=== PATIENT | female | born 1965 | race Caucasian/White ===

== ENCOUNTER → 2017-05-01 | Outpatient (CLI) | payer BC ==
[2017-05-01 18:30] LABS: HEMATOCRIT 41.4 % (36.0-47.0); HEMOGLOBIN 13.7 g/dL (12.0-15.5); HGB HCT DIFFERENCE -0.3; MEAN CORPUSCULAR HEMOGLOBIN 31.5 pg (27.0-33.4); MEAN CORPUSCULAR HGB CONC 33.2 g/dL (32.0-36.0); MEAN CORPUSCULAR VOLUME 95 fl (80-97); RED BLOOD COUNT 4.36 10^6/uL (3.72-5.28); RED CELL DISTRIBUTION WIDTH 12.5 % (11.5-14.0); WHITE BLOOD COUNT 12.4 10^3/uL (4.0-10.5)
[2017-05-01 18:56] LABS: ANION GAP 9 (5-19); BLOOD UREA NITROGEN 11 mg/dL (7-20); CALCIUM 8.8 mg/dL (8.4-10.2); CARBON DIOXIDE 22 mmol/L (22-30); CHLORIDE 105 mmol/L (98-107); GLUCOSE 96 mg/dL (75-110); POTASSIUM 4.2 mmol/L (3.6-5.0); SODIUM 136.3 mmol/L (137-145)
== END ==
LOC: OD 16:49
PROVIDERS: ATTEND Physician Assistant Surgical
DX: K57.30 Diverticulosis of large intestine without perforation or abscess without bleeding (principal); R10.32 Left lower quadrant pain
CPT/HCPCS: 36415; 80048; 85027

== ENCOUNTER 2017-05-02 13:17 | Inpatient (IN) | payer BC ==
[2017-05-02] MEDS ORDERED: ERTAPENEM SODIUM INJ 1 GM VIAL IV ONE (13:42)
[2017-05-02] MEDS ORDERED: NORMAL SALINE 1000 ML 1,000 ML IV ONE (13:42)
[2017-05-02] MEDS ORDERED: HYDROMORPHONE HCL INJ/PF 2 MG/ML AMPULE IV ONE ×2 (13:43→16:14)
[2017-05-02 14:40] LABS: ABSOLUTE LYMPHOCYTES (AUTO) 0.9 10^3/uL (0.5-4.7); ABSOLUTE MONOCYTES (AUTO) 0.6 10^3/uL (0.1-1.4); ABSOLUTE NEUT (AUTO) 10.4 10^3/uL (1.7-8.2); BASOPHILS % (AUTO) 0.2 % (0-2); HEMATOCRIT 39.5 % (36.0-47.0); HGB HCT DIFFERENCE -0.5; LYMPHOCYTES % (AUTO) 7.4 % (13-45); MEAN CORPUSCULAR HEMOGLOBIN 31.1 pg (27.0-33.4); MEAN CORPUSCULAR HGB CONC 32.8 g/dL (32.0-36.0); MEAN CORPUSCULAR VOLUME 95 fl (80-97); MONOCYTES % (AUTO) 5.2 % (3-13); RED BLOOD COUNT 4.17 10^6/uL (3.72-5.28); RED CELL DISTRIBUTION WIDTH 12.8 % (11.5-14.0); SEGMENTED NEUTROPHILS % (AUTO) 87.2 % (42-78); WHITE BLOOD COUNT 11.9 10^3/uL (4.0-10.5)
--- NOTE | 2017-05-02 14:46 | ER Document Report ---
ED General - General Chief Complaint: Abdominal Pain Stated Complaint: ABDOMINAL PAIN Time Seen by Provider: 05/02/17 13:41 Mode of Arrival: Ambulatory Information source: Patient Notes: 52 yr old female hx of diverticulitis, with no previous surgeries presents with complaints of abd pain in the LLQ,, pt notes her gi specialist sent her for outpatient ct noting a perforated diverticulitis. pt denies any fevers, admits to nausea and vomiting TRAVEL OUTSIDE OF THE [place] IN LAST 30 DAYS: No - HPI Onset: Yesterday Onset/Duration: Sudden Quality of pain: Sharp Severity: Mild Pain Level: 1 Associated symptoms: Nausea, Vomiting Exacerbated by: Denies Relieved by: Denies Similar symptoms previously: Yes Recently seen / treated by doctor: No - Related Data Allergies/Adverse Reactions: No Known Allergies Allergy (Verified 05/02/17 13:22) Past Medical History - Social History Smoking Status: Never Smoker Cigarette use (# per day): No Chew tobacco use (# tins/day): No Smoking Education Provided: No Family History: Reviewed & Not Pertinent Patient has suicidal ideation: No Patient has homicidal ideation: No - Past Medical History Cardiac Medical History: Reports: Hx Hypertension - on meds in past/varies Denies: Hx Coronary Artery Disease, Hx Heart Attack Pulmonary Medical History: Denies: Hx Asthma, Hx Bronchitis, Hx COPD, Hx Pneumonia Neurological Medical History: Denies: Hx Cerebrovascular Accident, Hx Seizures Renal/ Medical History: Denies: Hx Peritoneal Dialysis Musculoskeltal Medical History: Denies Hx Arthritis - Immunizations Hx Diphtheria, Pertussis, Tetanus Vaccination: No Review of Systems - Review of Systems Notes: REVIEW OF SYSTEMS: CONSTITUTIONAL : Denies fever, chills, or sweats. Denies recent illness. EENT: Denies eye, ear, throat, or mouth pain or symptoms. Denies nasal or sinus congestion or discharge. Denies throat, tongue, or mouth swelling or difficulty swallowing. CARDIOVASCULAR: Denies chest pain. Denies palpitations or racing or irregular heart beat. Denies ankle edema. RESPIRATORY: Denies cough, cold, or chest congestion. Denies shortness of breath, difficulty breathing, or wheezing. GASTROINTESTINAL: Admits to abdominal GENITOURINARY: Denies difficulty urinating, painful urination, burning, frequency, blood in urine, or discharge. MUSCULOSKELETAL: Denies back or neck pain or stiffness. Denies joint pain or swelling. SKIN: Denies rash, lesions or sores. HEMATOLOGIC : Denies easy bruising or bleeding. LYMPHATIC: Denies swollen, enlarged glands. NEUROLOGICAL: Denies confusion or altered mental status. Denies passing out or loss of consciousness. Denies dizziness or lightheadedness. Denies headache. Denies weakness or paralysis or loss of use of either side. Denies problems with gait or speech. Denies sensory loss, numbness, or tingling. Denies seizures. PSYCHIATRIC: Denies anxiety or stress. Denies depression, suicidal ideation, or homicidal ideation. ALL OTHER SYSTEMS REVIEWED AND NEGATIVE. Dictation was performed using [employer] voice recognition software PHYSICAL EXAMINATION: GENERAL: Well-appearing, well-nourished and in no acute distress. HEAD: Atraumatic, normocephalic. EYES: Pupils equal round and reactive to light, extraocular movements intact, sclera anicteric, conjunctiva are normal. ENT: Nares patent, oropharynx clear without exudates. Moist mucous membranes. NECK: Normal range of motion, supple without lymphadenopathy LUNGS: Breath sounds clear to auscultation bilaterally and equal. No wheezes rales or rhonchi. HEART: Regular rate and rhythm without murmurs ABDOMEN: Soft, tender in the left lower quadrant Musculoskeletal: Normal range of motion, no pitting or edema. No cyanosis. NEUROLOGICAL: Cranial nerves grossly intact. Normal speech, normal gait. Normal sensory, motor exams PSYCH: Normal mood, normal affect. SKIN: Warm, Dry, normal turgor, no rashes or lesions noted. Physical Exam - Vital signs Vitals: Temp Pulse Resp BP Pulse Ox 98.3 F 63 18 132/78 H 100 05/02/17 13:24 05/02/17 13:24 05/02/17 13:24 05/02/17 13:24 05/02/17 13:24 Course - Re-evaluation Re-evalutation: 05/02/17 14:[address] Delarosa, he notes since patient is afebrile with low wbc he requests admission to medicine Dr Duran [email or web address] - Vital Signs Vital signs: Temp Pulse Resp BP Pulse Ox 98.3 F 63 18 132/78 H 100 05/02/17 13:24 05/02/17 13:24 05/02/17 13:24 05/02/17 13:24 05/02/17 13:24 - Laboratory Result Diagrams: 05/02/17 14:10 05/02/17 14:10 - Diagnostic Test Radiology reviewed: Image reviewed, Reports reviewed Discharge - Discharge Clinical Impression: Perforated diverticulum of large intestine Abdominal pain Qualifiers: Abdominal location: left lower quadrant Qualified Code(s): R10.32 - Left lower quadrant pain Condition: Stable Disposition: ADMITTED INPATIENT Admitting Provider: [facility] Admitted: Telemetry Instructions: Abdominal Pain ([facility])
[2017-05-02 15:04] LABS: ALANINE AMINOTRANSFERASE 19 U/L (9-52); ALKALINE PHOSPHATASE 48 U/L (38-126); ANION GAP 13 (5-19); ASPARTATE AMINO TRANSFERASE 22 U/L (14-36); BILIRUBIN,DIRECT 0.3 mg/dL (0.0-0.4); BILIRUBIN,TOTAL 2.2 mg/dL (0.2-1.3); BLOOD UREA NITROGEN 11 mg/dL (7-20); CALCIUM 8.6 mg/dL (8.4-10.2); CARBON DIOXIDE 24 mmol/L (22-30); CHLORIDE 103 mmol/L (98-107); CREATININE RESULT 0.84 mg/dL (0.52-1.25); GLUCOSE 100 mg/dL (75-110); LIPASE 103.2 U/L (23-300); POTASSIUM 3.9 mmol/L (3.6-5.0); TOTAL PROTEIN 7.4 g/dL (6.3-8.2)
[2017-05-02 15:32] LABS: APPEARANCE,URINE CLEAR; BILIRUBIN,URINE NEGATIVE (NEGATIVE); GLUCOSE, URINE NEGATIVE (NEGATIVE); KETONES,URINE TRACE mg/dL (NEGATIVE); LEUKOCYTE ESTERASE,URINE NEGATIVE (NEGATIVE); NITRITE,URINE NEGATIVE (NEGATIVE); PROTEIN,URINE NEGATIVE (NEGATIVE); URINE SPECIFIC GRAVITY 1.049
[2017-05-02] MEDS ORDERED: GLUCAGON,HUMAN RECOMB 1 MG INJ SUBCUT PRN (17:49)
[2017-05-02] MEDS ORDERED: DEXTROSE 50%-WATER 25 GM/50 ML DISP.SYRIN IV PRN ×2 (17:49)
[2017-05-02] MEDS ORDERED: DEXTROSE 40% GEL 15 GM TUBE PO PRN ×2 (17:49)
[2017-05-02 18:41] LABS: THYROID STIMULATING HORMONE 0.72 uIU/mL (0.47-4.68)
--- NOTE | 2017-05-02 18:43 | PDOC H&P ---
History of Present Illness Admission Date/PCP: 05/02/17 17:49 LAURA TRAN MD History of Present Illness: CELENA STANTON is a 52 year old female ,she has a history of diverticulitis, she had abdominal pain, and she saw the commercial reporter for evaluation of abdominal pain, outpatient CT scan of the abdomen and pelvis was done, it showed wall thickening, luminal narrowing and surrounding inflammation along the distal sigmoid colon from acute diverticulitis. There is a small amount of inflammation and fluid and extraluminal air between the sigmoid colon and vaginal cuff worrisome for perforation. She was called by the GI physician and advised to go to the emergency room for evaluation and management for possible perforation of the colon. Past Medical History Cardiac Medical History: Reports: Hypertension - on meds in past/varies Social History Smoking Status: Never Smoker Frequency of Alcohol Use: Occasional Hx Recreational Drug Use: No Drugs: None Hx Prescription Drug Abuse: No - Advance Directive Resuscitation Status: Full Code Family History Family History: Reviewed & Not Pertinent Parental Family History Reviewed: Yes Children Family History Reviewed: Yes Sibling(s) Family History Reviewed.: Yes Medication/Allergy Home Medications: Diphenhydramine HCl [Benadryl] 50 mg PO HSP PRN 05/02/17 Furosemide [Lasix] 40 mg PO DAILYP PRN 05/02/17 Nebivolol HCl [Bystolic 5 mg Tablet] 5 mg PO QHS 05/02/17 Omeprazole 40 mg PO Q12 05/02/17 Allergies/Adverse Reactions: No Known Allergies Allergy (Verified 05/02/17 13:22) Review of Systems Constitutional: ABSENT: chills, fever(s), headache(s), weight gain, weight loss Eyes: ABSENT: visual disturbances Ears: ABSENT: hearing changes Cardiovascular: ABSENT: chest pain, dyspnea on exertion, edema, orthropnea, palpitations Respiratory: ABSENT: cough, hemoptysis Gastrointestinal: PRESENT: abdominal pain Genitourinary: ABSENT: dysuria, hematuria Musculoskeletal: ABSENT: joint swelling Integumentary: ABSENT: rash, wounds Neurological: ABSENT: abnormal gait, abnormal speech, confusion, dizziness, focal weakness, syncope Psychiatric: ABSENT: anxiety, depression, homidical ideation, suicidal ideation Endocrine: ABSENT: cold intolerance, heat intolerance, menstrual abnormalities, polydipsia, polyuria Hematologic/Lymphatic: ABSENT: easy bleeding, easy bruising, lymphadenopathy Physical Exam Vital Signs: Temp Pulse Resp BP Pulse Ox 99.2 F 69 16 118/63 94 05/02/17 16:58 05/02/17 16:58 05/02/17 16:58 05/02/17 16:58 05/02/17 16:58 Intake & Output 05/01/17 05/02/17 05/03/17 06:59 06:59 06:59 Intake Total 0 Balance 0 General appearance: PRESENT: no acute distress, well-developed, well-nourished Head exam: PRESENT: atraumatic, normocephalic Eye exam: PRESENT: conjunctiva pink, EOMI, PERRLA Ear exam: PRESENT: normal external ear exam Mouth exam: PRESENT: moist, tongue midline Neck exam: PRESENT: full ROM Respiratory exam: PRESENT: clear to auscultation reji Cardiovascular exam: PRESENT: RRR, +S1, +S2 Pulses: PRESENT: normal dorsalis pedis pul, +2 pedal pulses bilateral Vascular exam: PRESENT: normal capillary refill GI/Abdominal exam: PRESENT: normal bowel sounds, soft, tenderness - There is tenderness in the lower abdomen , there is no guarding, there is no rebound tenderness Rectal exam: PRESENT: deferred Neurological exam: PRESENT: alert, awake, oriented to person, oriented to place , oriented to time, oriented to situation, CN II-XII grossly intact Psychiatric exam: PRESENT: appropriate affect, normal mood Skin exam: PRESENT: dry, intact, warm Assessment & Plan - Diagnosis (1) Diverticulitis of colon with perforation Qualifiers: Diverticulitis bleeding: without bleeding Qualified Code(s): K57.20 - Diverticulitis of large intestine with perforation and abscess without bleeding Is this a current diagnosis for this admission?: YesPlan: She has a history of recurrent diverticulitis, she now presents with acute diverticulitis of the sigmoid colon with perforation. She will be kept n.p.o. consultation will be requested from surgery, she will empirically be treated with IV Cipro and Flagyl
[2017-05-02] MEDS: METRONIDAZOLE 500 MG/NS RTU 100 ML IV SCH (18:44)
[2017-05-02] MEDS: POTASSI CL 10 MEQ/D5-1/2NS 1L 1,000 ML IV PRN (18:44)
[2017-05-02] MEDS: ONDANSETRON HCL INJ/PF 4 MG/2 ML SDV IV PRN (20:08)
[2017-05-02] MEDS: HYDROMORPHONE HCL INJ/PF 2 MG/ML AMPULE IV PRN (20:09)
[2017-05-02 21:28] LABS: APPEARANCE,URINE CLEAR; BILIRUBIN,URINE NEGATIVE (NEGATIVE); GLUCOSE, URINE NEGATIVE (NEGATIVE); KETONES,URINE 20 mg/dL (NEGATIVE); LEUKOCYTE ESTERASE,URINE NEGATIVE (NEGATIVE); NITRITE,URINE NEGATIVE (NEGATIVE); PROTEIN,URINE NEGATIVE (NEGATIVE); URINE SPECIFIC GRAVITY 1.019; UROBILINOGEN,URINE NEGATIVE mg/dL (<2.0)
[2017-05-02] MEDS: CIPROFLOXACIN 400 MG/D5W RTU 200 ML IV SCH (21:58)
--- NOTE | 2017-05-03 00:12 | PDOC CONSULTATION ---
History of Present Illness Admission Date/PCP: 05/02/17 17:49 LAURA TRAN MD Patient complains of: Abdominal pain History of Present Illness: 52-year-old female with 3 prior episodes of sigmoid diverticulitis in the past couple of years now presenting with 2 day history of lower abdominal pain severe in the left lower quadrant and has had some associated nausea but no fever. She denies any bowel habit changes. She had a colonoscopy about 3 years ago that was unremarkable as per the patient Past Medical History Cardiac Medical History: Reports: Hypertension - on meds in past/varies Denies: Coronary Artery Disease, Myocardial Infarction Pulmonary Medical History: Denies: Asthma, Bronchitis, Chronic Obstructive Pulmonary Disease (COPD), Pneumonia Neurological Medical History: Denies: Seizures Musculoskeltal Medical History: Denies: Arthritis Hematology: Denies: Anemia Past Surgical History Past Surgical History: Reports: Hysterectomy - Vaginal for menorrhagia Social History Smoking Status: Never Smoker Frequency of Alcohol Use: Occasional Hx Recreational Drug Use: No Drugs: None Hx Prescription Drug Abuse: No - Advance Directive Resuscitation Status: Full Code Family History Family History: Reviewed & Not Pertinent Parental Family History Reviewed: No Children Family History Reviewed: No Sibling(s) Family History Reviewed.: No Medication/Allergy Home Medications: Diphenhydramine HCl [Benadryl] 50 mg PO HSP PRN 05/02/17 Furosemide [Lasix] 40 mg PO DAILYP PRN 05/02/17 Nebivolol HCl [Bystolic 5 mg Tablet] 5 mg PO QHS 05/02/17 Omeprazole 40 mg PO Q12 05/02/17 Allergies/Adverse Reactions: No Known Allergies Allergy (Verified 05/02/17 13:22) Physical Exam Vital Signs: Temp Pulse Resp BP Pulse Ox 99.3 F 63 18 110/60 97 05/02/17 19:51 05/02/17 19:51 05/02/17 19:51 05/02/17 19:51 05/02/17 19:51 Intake & Output 05/01/17 05/02/17 05/03/17 06:59 06:59 06:59 Intake Total 0 Balance 0 General appearance: PRESENT: no acute distress, cooperative Eye exam: PRESENT: conjunctiva pink Neck exam: PRESENT: other - Supple with no tenderness Respiratory exam: PRESENT: clear to auscultation reji Cardiovascular exam: PRESENT: RRR GI/Abdominal exam: PRESENT: other - Soft, nondistended, left lower quadrant abdominal tenderness with no peritoneal signs Extremities exam: PRESENT: other - No swelling and no tenderness Neurological exam: PRESENT: alert, awake, oriented to situation Psychiatric exam: PRESENT: appropriate affect Skin exam: PRESENT: warm Results Laboratory Results: 05/02/17 21:00 Urine Color YELLOW Urine Appearance CLEAR Urine pH 6.0 Ur Specific [place] 1.019 Urine Protein NEGATIVE Urine Glucose (UA) NEGATIVE Urine Ketones 20 H Urine Blood NEGATIVE Urine Nitrite NEGATIVE Ur Leukocyte Esterase NEGATIVE Urine WBC (Auto) 0 Urine RBC (Auto) 0 Assessment & Plan - Diagnosis (1) Diverticulitis of colon with perforation Qualifiers: Diverticulitis bleeding: without bleeding Qualified Code(s): K57.20 - Diverticulitis of large intestine with perforation and abscess without bleeding Is this a current diagnosis for this admission?: YesPlan: Diverticulitis with a focal tenderness without peritoneal signs. Patient will likely respond with conservative management. However with her multiple prior episodes of diverticulitis, patient would benefit from a semi-elective sigmoid colon resection. Recommend continuation of IV antibiotics and bowel rest until the pain significantly improved. When pain significantly improves may start her on a diet, likely in a couple of days. Patient needs to be on p.o. antibiotics for a good 2 week course. I will see her back for follow-up in my office if she does well with conservative management, to discuss with her semi- elective sigmoid colon resection. Obviously if she does not respond with conservative measures she will need surgery during this admission. Surgicalist service will follow along with you.
[2017-05-03] MEDS: METRONIDAZOLE 500 MG/NS RTU 100 ML IV SCH ×4 (00:43→21:37)
[2017-05-03] MEDS: HYDROMORPHONE HCL INJ/PF 2 MG/ML AMPULE IV PRN ×2 (00:43→04:44)
[2017-05-03 04:58] LABS: ABSOLUTE LYMPHOCYTES (AUTO) 1.6 10^3/uL (0.5-4.7); ABSOLUTE MONOCYTES (AUTO) 0.8 10^3/uL (0.1-1.4); ABSOLUTE NEUT (AUTO) 9.8 10^3/uL (1.7-8.2); BASOPHILS % (AUTO) 0.3 % (0-2); EOSINOPHILS % (AUTO) 0.2 % (0-6); HEMATOCRIT 35.9 % (36.0-47.0); HEMOGLOBIN 11.9 g/dL (12.0-15.5); HGB HCT DIFFERENCE -0.2; LYMPHOCYTES % (AUTO) 13.3 % (13-45); MEAN CORPUSCULAR HEMOGLOBIN 31.6 pg (27.0-33.4); MEAN CORPUSCULAR HGB CONC 33.1 g/dL (32.0-36.0); MEAN CORPUSCULAR VOLUME 96 fl (80-97); MONOCYTES % (AUTO) 6.5 % (3-13); RED BLOOD COUNT 3.75 10^6/uL (3.72-5.28); RED CELL DISTRIBUTION WIDTH 12.7 % (11.5-14.0); SEGMENTED NEUTROPHILS % (AUTO) 79.7 % (42-78); WHITE BLOOD COUNT 12.3 10^3/uL (4.0-10.5)
[2017-05-03 05:22] LABS: ALANINE AMINOTRANSFERASE 25 U/L (9-52); ALBUMIN 3.1 g/dL (3.5-5.0); ALKALINE PHOSPHATASE 37 U/L (38-126); ANION GAP 8 (5-19); ASPARTATE AMINO TRANSFERASE 16 U/L (14-36); BILIRUBIN,DIRECT 0.4 mg/dL (0.0-0.4); BILIRUBIN,TOTAL 1.5 mg/dL (0.2-1.3); BLOOD UREA NITROGEN 7 mg/dL (7-20); CALCIUM 7.9 mg/dL (8.4-10.2); CARBON DIOXIDE 21 mmol/L (22-30); CHLORIDE 109 mmol/L (98-107); CHOLESTEROL 147.19 mg/dL (0-200); CREATININE RESULT 0.78 mg/dL (0.52-1.25); Direct HDL 57 mg/dL (>40); GLUCOSE 115 mg/dL (75-110); POTASSIUM 4.6 mmol/L (3.6-5.0); SODIUM 138.4 mmol/L (137-145); TRIGLYCERIDES 77 mg/dL (<150)
[2017-05-03 05:34] LABS: DIRECT LDL 69 mg/dL (<100)
[2017-05-03] MEDS: ENOXAPARIN SODIUM INJ 40 MG/0.4 ML DISP.SYRIN SUBCUT SCH (09:46)
[2017-05-03] MEDS: KETOROLAC TROMETHAMINE INJ/PF 30 MG/1 ML SDV IV PRN ×2 (09:46→20:26)
[2017-05-03] MEDS: CIPROFLOXACIN 400 MG/D5W RTU 200 ML IV SCH ×2 (09:46→22:54)
[2017-05-03] MEDS: ONDANSETRON HCL INJ/PF 4 MG/2 ML SDV IV PRN (09:53)
--- NOTE | 2017-05-03 15:28 | PROGRESS NOTE E ---
Progress Note NAME: CELENA STANTON : 1965 AGE: 52Y DATE: 05/03/2017 ROOM: 415 SUBJECTIVE: She is still complaining of pain in the left lower quadrant, though a lot less when she came in yesterday. OBJECTIVE: ABDOMEN: Her abdomen is soft with tenderness of the left lower quadrant. PLAN: The plan is to continue her on IV antibiotics for this recurrent diverticulitis and keep her on bowel rest another day. DICTATING PHYSICIAN: WIL SHARMA M.D. [id number] PHY#: [id number] ID: [id number] JOB#: [id number] ACCT: [id number] cc: >
--- NOTE | 2017-05-03 19:21 | PDOC PROGRESS REPORT ---
Subjective Progress Note for:: 05/03/17 Subjective:: She was seen by the bedside, she had IV Toradol for the abdominal pain with very good result. She was seen by the surgeon, the plan for management is conservative at this time Physical Exam Vital Signs: Temp Pulse Resp BP Pulse Ox 98.3 F 56 L 18 110/67 97 05/03/17 16:00 05/03/17 16:00 05/03/17 16:00 05/03/17 16:00 05/03/17 16:00 Intake & Output 05/02/17 05/03/17 05/04/17 06:59 06:59 06:59 Intake Total 900 1500 Output Total 600 Balance 300 1500 Weight 71.2 kg General appearance: PRESENT: no acute distress Eye exam: PRESENT: PERRLA Respiratory exam: PRESENT: clear to auscultation reji Cardiovascular exam: PRESENT: +S1, +S2 GI/Abdominal exam: PRESENT: soft Neurological exam: PRESENT: alert, CN II-XII grossly intact Results Laboratory Results: 05/03/17 04:16 05/03/17 04:16 05/02/17 05/03/17 05/03/17 21:00 04:16 04:16 WBC 12.3 H RBC 3.75 Hgb 11.9 L Hct 35.9 L MCV 96 MCH 31.6 MCHC 33.1 RDW 12.7 Plt Count 174 Seg Neutrophils % 79.7 H Lymphocytes % 13.3 Monocytes % 6.5 Eosinophils % 0.2 Basophils % 0.3 Absolute Neutrophils 9.8 H Absolute Lymphocytes 1.6 Absolute Monocytes 0.8 Absolute Eosinophils 0.0 Absolute Basophils 0.0 Sodium 138.4 Potassium 4.6 Chloride 109 H Carbon Dioxide 21 L Anion Gap 8 BUN 7 Creatinine 0.78 Est GFR ( Amer) > 60 Est GFR (Non-Af Amer) > 60 Glucose 115 H Calcium 7.9 L Total Bilirubin 1.5 H AST 16 ALT 25 Alkaline Phosphatase 37 L Total Protein 6.0 L Albumin 3.1 L Triglycerides 77 Cholesterol 147.19 LDL Cholesterol Direct 69 VLDL Cholesterol 15.0 HDL Cholesterol 57 Urine Color YELLOW Urine Appearance CLEAR Urine pH 6.0 Ur Specific [place] 1.019 Urine Protein NEGATIVE Urine Glucose (UA) NEGATIVE Urine Ketones 20 H Urine Blood NEGATIVE Urine Nitrite NEGATIVE Ur Leukocyte Esterase NEGATIVE Urine WBC (Auto) 0 Urine RBC (Auto) 0 Assessment & Plan - Diagnosis (1) Diverticulitis of colon with perforation Qualifiers: Diverticulitis bleeding: without bleeding Qualified Code(s): K57.20 - Diverticulitis of large intestine with perforation and abscess without bleeding Is this a current diagnosis for this admission?: YesPlan: Patient remained n.p.o., continue IV antibiotic, continue IV toradol
[2017-05-03] MEDS: POTASSI CL 10 MEQ/D5-1/2NS 1L 1,000 ML IV PRN (19:22)
[2017-05-04] MEDS ORDERED: METRONIDAZOLE 500 MG/NS RTU 100 ML IV SCH
[2017-05-04] MEDS: METRONIDAZOLE 500 MG/NS RTU 100 ML IV SCH ×4 (02:52→20:59)
[2017-05-04 05:22] LABS: ABSOLUTE EOSINOPHILS # (AUTO) 0.1 10^3/uL (0.0-0.6); ABSOLUTE LYMPHOCYTES (AUTO) 1.6 10^3/uL (0.5-4.7); ABSOLUTE MONOCYTES (AUTO) 0.7 10^3/uL (0.1-1.4); ABSOLUTE NEUT (AUTO) 5.8 10^3/uL (1.7-8.2); BASOPHILS % (AUTO) 0.5 % (0-2); EOSINOPHILS % (AUTO) 1.4 % (0-6); HEMATOCRIT 34.6 % (36.0-47.0); HEMOGLOBIN 11.7 g/dL (12.0-15.5); HGB HCT DIFFERENCE 0.5; LYMPHOCYTES % (AUTO) 19.8 % (13-45); MEAN CORPUSCULAR HEMOGLOBIN 32.1 pg (27.0-33.4); MEAN CORPUSCULAR HGB CONC 33.8 g/dL (32.0-36.0); MEAN CORPUSCULAR VOLUME 95 fl (80-97); MONOCYTES % (AUTO) 8.3 % (3-13); RED BLOOD COUNT 3.65 10^6/uL (3.72-5.28); RED CELL DISTRIBUTION WIDTH 12.7 % (11.5-14.0); WHITE BLOOD COUNT 8.3 10^3/uL (4.0-10.5)
[2017-05-04] MEDS: POTASSI CL 10 MEQ/D5-1/2NS 1L 1,000 ML IV PRN (08:06)
[2017-05-04] MEDS: ENOXAPARIN SODIUM INJ 40 MG/0.4 ML DISP.SYRIN SUBCUT SCH (09:18)
[2017-05-04] MEDS: CIPROFLOXACIN 400 MG/D5W RTU 200 ML IV SCH ×2 (10:32→21:07)
[2017-05-04] MEDS: KETOROLAC TROMETHAMINE INJ/PF 30 MG/1 ML SDV IV PRN ×2 (10:33→22:55)
--- NOTE | 2017-05-04 11:19 | PROGRESS NOTE E ---
Progress Note NAME: CELENA STANTON : 1965 AGE: 52Y DATE: 05/04/2017 ROOM: 415 The patient is still complaining of left lower quadrant abdominal pains but no nausea or vomiting. She is passing gas and had a bowel movement. Her white count yesterday was normal and she is afebrile today. I agree with Dr. Sol to start her on a clear liquids today. I told her we will hold off on giving her more solid foods unless her symptoms really decrease further. DICTATING PHYSICIAN: WIL SHARMA M.D. [id number] PHY#: [id number] ID: [id number] JOB#: [id number] ACCT: [id number] cc: >
--- NOTE | 2017-05-04 16:26 | PDOC PROGRESS REPORT ---
Subjective Progress Note for:: 05/04/17 Subjective:: She was admitted because of perforated acute diverticulitis, she was seen earlier this morning by the surgeon the plan is to continue conservative approach to the perforated diverticulitis, she complained of abdominal pain, the pin seems to respond to intravenous Toradol. She will continue the IV antibiotic as prescribed earlier Physical Exam Vital Signs: Temp Pulse Resp BP Pulse Ox 98.5 F 50 L 18 120/75 98 05/04/17 12:08 05/04/17 12:08 05/04/17 12:08 05/04/17 12:08 05/04/17 12:08 Intake & Output 05/03/17 05/04/17 05/05/17 06:59 06:59 06:59 Intake Total 900 3450 480 Output Total 600 800 Balance 300 2650 480 Weight 71.2 kg 71.4 kg General appearance: PRESENT: no acute distress, well-developed, well-nourished Head exam: PRESENT: atraumatic, normocephalic Eye exam: PRESENT: conjunctiva pink, EOMI, PERRLA. ABSENT: scleral icterus Ear exam: PRESENT: normal external ear exam Mouth exam: PRESENT: moist, tongue midline Neck exam: PRESENT: full ROM. ABSENT: carotid bruit, JVD, lymphadenopathy, thyromegaly Cardiovascular exam: PRESENT: RRR, +S1, +S2 Pulses: PRESENT: normal dorsalis pedis pul, +2 pedal pulses bilateral Vascular exam: PRESENT: normal capillary refill GI/Abdominal exam: PRESENT: normal bowel sounds, soft, tenderness Rectal exam: PRESENT: deferred Neurological exam: PRESENT: alert, awake, oriented to person, oriented to place , oriented to time, oriented to situation, CN II-XII grossly intact Psychiatric exam: PRESENT: appropriate affect, normal mood Skin exam: PRESENT: dry, intact, warm. ABSENT: cyanosis, rash Results Laboratory Results: 05/04/17 04:18 05/03/17 04:16 05/04/17 04:18 WBC 8.3 RBC 3.65 L Hgb 11.7 L Hct 34.6 L MCV 95 MCH 32.1 MCHC 33.8 RDW 12.7 Plt Count 182 Seg Neutrophils % 70.0 Lymphocytes % 19.8 Monocytes % 8.3 Eosinophils % 1.4 Basophils % 0.5 Absolute Neutrophils 5.8 Absolute Lymphocytes 1.6 Absolute Monocytes 0.7 Absolute Eosinophils 0.1 Absolute Basophils 0.0 05/02/17 21:00 Clean Catch Midstream Urine Culture - Final NO GROWTH 2 DAYS Assessment & Plan - Diagnosis (1) Diverticulitis of colon with perforation Qualifiers: Diverticulitis bleeding: without bleeding Qualified Code(s): K57.20 - Diverticulitis of large intestine with perforation and abscess without bleeding Is this a current diagnosis for this admission?: Yes - Plan Summary Plan Summary: She will continue IV antibiotic, IV Toradol, clear liquid diet.
[2017-05-05] MEDS: POTASSI CL 10 MEQ/D5-1/2NS 1L 1,000 ML IV PRN (00:32)
[2017-05-05] MEDS: METRONIDAZOLE 500 MG/NS RTU 100 ML IV SCH ×3 (02:09→15:20)
[2017-05-05 05:59] LABS: ABSOLUTE EOSINOPHILS # (AUTO) 0.1 10^3/uL (0.0-0.6); ABSOLUTE LYMPHOCYTES (AUTO) 1.7 10^3/uL (0.5-4.7); ABSOLUTE MONOCYTES (AUTO) 0.6 10^3/uL (0.1-1.4); ABSOLUTE NEUT (AUTO) 3.7 10^3/uL (1.7-8.2); BASOPHILS % (AUTO) 0.8 % (0-2); EOSINOPHILS % (AUTO) 1.9 % (0-6); HEMATOCRIT 35.3 % (36.0-47.0); HEMOGLOBIN 11.9 g/dL (12.0-15.5); HGB HCT DIFFERENCE 0.4; LYMPHOCYTES % (AUTO) 27.8 % (13-45); MEAN CORPUSCULAR HGB CONC 33.6 g/dL (32.0-36.0); MEAN CORPUSCULAR VOLUME 95 fl (80-97); MONOCYTES % (AUTO) 9.7 % (3-13); RED BLOOD COUNT 3.71 10^6/uL (3.72-5.28); RED CELL DISTRIBUTION WIDTH 12.6 % (11.5-14.0); SEGMENTED NEUTROPHILS % (AUTO) 59.8 % (42-78); WHITE BLOOD COUNT 6.3 10^3/uL (4.0-10.5)
[2017-05-05] MEDS: CIPROFLOXACIN 400 MG/D5W RTU 200 ML IV SCH (10:18)
[2017-05-05] MEDS: ENOXAPARIN SODIUM INJ 40 MG/0.4 ML DISP.SYRIN SUBCUT SCH (10:28)
--- NOTE | 2017-05-05 12:19 | PDOC DISCHARGE SUMMARY ---
General - Admit/Disc Date/PCP Admission Date/Primary Care Provider: 05/02/17 17:49 LAURA TRAN MD Discharge Date: 05/05/17 - Discharge Diagnosis (1) Diverticulitis of colon with perforation Is this a current diagnosis for this admission?: Yes - Additional Information Resuscitation Status: Full Code Discharge Diet: As Tolerated Home Medications: Furosemide [Lasix] 40 mg PO DAILYP PRN 05/02/17 Nebivolol HCl [Bystolic 5 mg Tablet] 5 mg PO QHS 05/02/17 Omeprazole 40 mg PO Q12 05/02/17 Ciprofloxacin HCl [Cipro 500 mg Tablet] 500 mg PO BID #28 tablet 05/05/17 Metronidazole [Flagyl 500 mg Tablet] 500 mg PO Q8H #42 tablet 05/05/17 History of Present Illness History of Present Illness: CELENA STANTON is a 52 year old female ,she has a history of diverticulitis, she had abdominal pain, and she saw the mail order biller for evaluation of abdominal pain, outpatient CT scan of the abdomen and pelvis was done, it showed wall thickening, luminal narrowing and surrounding inflammation along the distal sigmoid colon from acute diverticulitis. There is a small amount of inflammation and fluid and extraluminal air between the sigmoid colon and vaginal cuff worrisome for perforation. She was called by the GI physician and advised to go to the emergency room for evaluation and management for possible perforation of the colon. Hospital Course Hospital Course: She was admitted for the management of perforated diverticulitis of the sigmoid colon. She was treated conservatively with intravenous antibiotic Cipro and Flagyl, she was kept n.p.o. for 2 days, liquid diet was slowly introduced and subsequently solid diet was introduced. She was seen by the surgeon, conservative approach was recommended at this time. Pain control was achieved with intravenous Toradol, she did not tolerate intravenous Dilaudid. She will be discharged home today, because of the recurrent nature of the diverticulitis elective outpatient colectomy was recommended. Physical Exam Vital Signs: Temp Pulse Resp BP Pulse Ox 98.3 F 51 L 12 115/78 98 05/05/17 08:11 05/05/17 08:11 05/05/17 08:11 05/05/17 08:11 05/05/17 08:11 Intake & Output 05/04/17 05/05/17 05/06/17 06:59 06:59 06:59 Intake Total 3450 2723 481 Output Total 800 1350 Balance 2650 1373 481 Weight 71.4 kg 72.6 kg General appearance: PRESENT: no acute distress, well-developed, well-nourished Head exam: PRESENT: atraumatic, normocephalic Eye exam: PRESENT: conjunctiva pink, EOMI, PERRLA. ABSENT: scleral icterus Ear exam: PRESENT: normal external ear exam Mouth exam: PRESENT: moist, tongue midline Neck exam: PRESENT: full ROM Respiratory exam: PRESENT: clear to auscultation reji Cardiovascular exam: PRESENT: RRR, +S1, +S2 Pulses: PRESENT: normal dorsalis pedis pul, +2 pedal pulses bilateral Vascular exam: PRESENT: normal capillary refill GI/Abdominal exam: PRESENT: normal bowel sounds, soft Rectal exam: PRESENT: deferred Neurological exam: PRESENT: alert, awake, oriented to person, oriented to place , oriented to time, oriented to situation, CN II-XII grossly intact Psychiatric exam: PRESENT: appropriate affect, normal mood Skin exam: PRESENT: dry, intact, warm Results Laboratory Results: 05/05/17 05:06 05/03/17 04:16 05/05/17 05:06 WBC 6.3 RBC 3.71 L Hgb 11.9 L Hct 35.3 L MCV 95 MCH 32.0 MCHC 33.6 RDW 12.6 Plt Count 208 Seg Neutrophils % 59.8 Lymphocytes % 27.8 Monocytes % 9.7 Eosinophils % 1.9 Basophils % 0.8 Absolute Neutrophils 3.7 Absolute Lymphocytes 1.7 Absolute Monocytes 0.6 Absolute Eosinophils 0.1 Absolute Basophils 0.0 05/02/17 21:00 Clean Catch Midstream Urine Culture - Final NO GROWTH 2 DAYS
--- NOTE | 2017-05-05 12:48 | PROGRESS NOTE E ---
Progress Note NAME: CELENA STANTON : 1965 AGE: 52Y DATE: 05/05/2017 ROOM: 415 SUBJECTIVE: This is the third hospital day for the patient for acute sigmoid diverticulitis and treated conservatively. She feels a lot better today with minimal discomfort in the left lower quadrant. There is more discomfort when she has a bowel movement. She did have a small amount of bowel movement this morning. She is afebrile, and her white count is normal at 6.3 with hemoglobin 11.9. She is tolerating liquids well. She is anxious to go home and told her we will try her on a soft diet, and if she tolerates that, then she can go home and continue on p.o. Flagyl and Cipro. I will give her a prescription for Percocet to take 1 every 6 hours as needed for pain. She has not taken any pain medications in the past 12 hours, so it is unlikely she will need a lot of pain meds. From the surgical standpoint, she can go home when she tolerates a soft diet. She should be contained on low residue diet and continue with p.o. antibiotics for about 12 days. She also needs a followup in the surgical clinic of Dr. Delarosa in 2 weeks. OBJECTIVE: ABDOMEN: Soft with minimal tenderness in the left lower quadrant. ASSESSMENT: DICTATING PHYSICIAN: WIL SHARMA M.D. [id number] PHY#: [id number] ID: [id number] JOB#: [id number] ACCT: [id number] cc: >
[2017-05-05 14:40] VITALS: BP 122/95
== END 2017-05-05 15:18 | disposition home or self-care (01) | DRG 392 ==
LOC: ER 13:17 → UNDOADMIN 15:12 → EH 15:12 → 4N 16:47 → EH 17:49 → 4N 17:49
PROVIDERS: ADMIT Internal Medicine; ATTEND Internal Medicine
DX: K57.20 Diverticulitis of large intestine with perforation and abscess without bleeding (principal); I10 Essential (primary) hypertension
CPT/HCPCS: 36415; 80053; 80061; 81001; 81025; 83036; 83605; 83690; 84439; 84443; 85025; 87040; 87086; 96365; 96375; 99284; J0744; J1170; J1335; J1650; J1885; J2405; J3480; J7030

== ENCOUNTER → 2017-05-02 | Outpatient (CLI) | payer BC ==
--- NOTE | 2017-05-02 12:04 | RADIOLOGY REPORT (SQ) ---
EXAM DESCRIPTION: CT ABD/PELVIS WITH IV ORAL COMPLETED DATE/TIME: 05/02/2017 11:40 am REASON FOR STUDY: DIVERTICULITIS OF LARGE INTESTINE K57.32 DVTRCLI OF LG INT W/O PERFORATION OR ABS CESS W/O BLEE COMPARISON: CT abdomen pelvis 09/06/2015 TECHNIQUE: CT scan of the abdomen and pelvis performed using helical scanning technique with dynamic intravenous contrast injection. Patient drank oral contrast. Images reviewed with lung, soft tissue, and bone windows. Reconstructed coronal and sagittal MPR imag es reviewed. Delayed images for evaluation of the urinary system also acquired. All images stored on PACS. All CT scanners at this facility use dose modulation, iterative reconstruction, and/or weight based d osing when appropriate to reduce radiation dose to as low as reasonably achievable (ALARA). [facility]: Dose Right [facility]: CareDose [facility]: Dose Right [facility]: Teradose 4D [facility]: Quri CONTRAST TYPE AND DOSE: contrast/concentration: Isovue 370.00 mg/ml; Total Contrast Delivered: 79.0 ml; Total Saline Delivered: 68.0 ml RENAL FUNCTION: Creatinine 0.8 RADIATION DOSE: Up-to-date CT equipment and radiation dose reduction techniques were employed. CTDIv ol: 7.1 - 8.3 mGy. DLP: 757 mGy-cm.. LIMITATIONS: None. FINDINGS: Column wall thickening, luminal narrowing, and surrounding inflammation is present along t he distal sigmoid colon from acute diverticulitis. There is a small amount of inflammation and fluid , and extraluminal air between the sigmoid colon and vaginal cuff, best shown on coronal images 55 an d 56. This is worrisome for perforation without well-circumscribed abscess. This result was called to Dr. Moreno, 1150 hours 05/02/2017. Remainder of the gastrointestinal tract is opacified with oral contrast. No bowel obstruction. Estefany ping of the colon is otherwise unremarkable aside from scattered descending colon diverticuli. LOWER CHEST: No significant findings. No nodules or infiltrates. Small hiatal hernia. LIVER: Normal size. No masses. No dilated ducts. 12 mm cyst right lobe liver, 14 mm cyst left lobe liver. SPLEEN: Normal size. No focal lesions. PANCREAS: No masses. No significant calcifications. No adjacent inflammation or peripancreatic fluid collections. Pancreatic duct not dilated. GALLBLADDER: No identified stones by CT criteria. No inflammatory changes to suggest cholecystitis. ADRENAL GLANDS: No significant masses or asymmetry. RIGHT KIDNEY AND URETER: No solid masses. No significant calcifications. No hydronephrosis or hyd roureter. LEFT KIDNEY AND URETER: No solid masses. No significant calcifications. No hydronephrosis or hydr oureter. AORTA AND VESSELS: No aneurysm. No dissection. Renal arteries, SMA, celiac without stenosis. RETROPERITONEUM: No retroperitoneal adenopathy, hemorrhage or masses. BOWEL AND PERITONEAL CAVITY: As above APPENDIX: Surgically absent PELVIS: Post hysterectomy. Trace amount of free air and fluid between the sigmoid colon and vaginal cuff related to diverticulitis and diverticular perforation. No well circumscribed abscess. No pelv ic adenopathy. Right ovary not identified. Left ovary 4 x 2.2 cm in size with a 3 x 2 cm cyst ABDOMINAL WALL: No masses. No hernias. BONES: No significant or acute findings. OTHER: No other significant finding. IMPRESSION: Distal sigmoid colon diverticulitis with trace amount of extraluminal air and fluid betw een the inferior aspect of the sigmoid colon and the vaginal cuff. Report called to Dr. Moreno as helio rosen TECHNICAL DOCUMENTATION: JOB ID: [id number] Quality ID # [id number]: Final reports with documentation of one or more dose reduction techniques (e.g., Au tomated exposure control, adjustment of the mA and/or kV according to patient size, use of iterative reconstruction technique) 2010 [employer]- All Rights Reserved
== END ==
LOC: RAD 09:08
PROVIDERS: ATTEND Internal Medicine Gastroenterology
DX: K57.32 Diverticulitis of large intestine without perforation or abscess without bleeding (principal); R10.32 Left lower quadrant pain
CPT/HCPCS: 74177

== ENCOUNTER 2017-05-08 11:35 | Inpatient (IN) | payer BC ==
--- NOTE | 2017-05-08 14:33 | RADIOLOGY REPORT (SQ) ---
EXAM DESCRIPTION: CT ABD/PELVIS WITH IV ORAL COMPLETED DATE/TIME: 05/08/2017 2:09 pm REASON FOR STUDY: DIVERTICULITIS OF LARGE INTESTINE WITH PERFORATION AND ABSCESS WITH BLEEDIN K57.21 DVTRCLI OF LG INT W PERFORATION AND ABSCESS W BLEEDIN COMPARISON: 05/02/2017 TECHNIQUE: CT scan of the abdomen and pelvis performed using helical scanning technique with dynamic intravenous contrast injection and oral contrast. Images reviewed with lung, soft tissue, and bone w indows. Reconstructed coronal and sagittal MPR images reviewed. Delayed images for evaluation of the urinary system also acquired. All images stored on PACS. All CT scanners at this facility use dose modulation, iterative reconstruction, and/or weight based d osing when appropriate to reduce radiation dose to as low as reasonably achievable (ALARA). [facility]: Dose Right [facility]: CareDose [facility]: Dose Right [facility]: Teradose 4D [facility]: [employer] CONTRAST TYPE AND DOSE: contrast/concentration: Isovue 370.00 mg/ml; Total Contrast Delivered: 79.0 ml; Total Saline Delivered: 68.0 ml RENAL FUNCTION: Creatinine 0.78 RADIATION DOSE: Up-to-date CT equipment and radiation dose reduction techniques were employed. CTDIv ol: 7.0 - 8.1 mGy. DLP: 751 mGy-cm.. LIMITATIONS: None. FINDINGS: LOWER CHEST: No significant findings. No nodules or infiltrates. LIVER: Normal size. No masses. No dilated ducts. The previously described small hepatic cysts remai n stable. SPLEEN: Normal size. No focal lesions. PANCREAS: No masses. No significant calcifications. No adjacent inflammation or peripancreatic fluid collections. Pancreatic duct not dilated. GALLBLADDER: No identified stones by CT criteria. No inflammatory changes to suggest cholecystitis. ADRENAL GLANDS: No significant masses or asymmetry. RIGHT KIDNEY AND URETER: No solid masses. No significant calcifications. No hydronephrosis or hyd roureter. LEFT KIDNEY AND URETER: No solid masses. No significant calcifications. No hydronephrosis or hydr oureter. AORTA AND VESSELS: No aneurysm. No dissection. Renal arteries, SMA, celiac without stenosis. RETROPERITONEUM: No retroperitoneal adenopathy, hemorrhage or masses. BOWEL AND PERITONEAL CAVITY: The previously described diffuse wall thickening and luminal narrowing w ith surrounding inflammation involving the distal sigmoid colon is again identified and appears sligh tly more pronounced on the current study. The previously described small amount of inflammation and fluid and extra luminal air between the sigmoid colon and vaginal cuff is not definitely identified o n the current study. APPENDIX: Status post appendectomy. PELVIS: Inflammatory changes related to the diverticulitis are identified. ABDOMINAL WALL: No masses. No hernias. BONES: No significant or acute findings. OTHER: No other significant finding. IMPRESSION: The previously described diffuse wall thickening and luminal narrowing with surrounding inflammation involving the distal sigmoid colon is again identified and appears slightly more pronoun oscar on the current study. The previously described small amount of inflammation and fluid index juliocesar nal air between the sigmoid colon and vaginal cuff is not definitely identified on the current study. No other significant interval changes compared to the previous study. Other findings as noted abov e TECHNICAL DOCUMENTATION: JOB ID: [id number] Quality ID # [id number]: Final reports with documentation of one or more dose reduction techniques (e.g., Au tomated exposure control, adjustment of the mA and/or kV according to patient size, use of iterative reconstruction technique) 2010 [employer]- All Rights Reserved
[2017-05-08] MEDS ORDERED: GLUCAGON,HUMAN RECOMB 1 MG INJ SUBCUT PRN (15:33)
[2017-05-08] MEDS ORDERED: DEXTROSE 40% GEL 15 GM TUBE PO PRN ×2 (15:33)
[2017-05-08] MEDS ORDERED: DEXTROSE 50%-WATER 25 GM/50 ML DISP.SYRIN IV PRN ×2 (15:33)
[2017-05-08 17:03] LABS: LIPASE 138.5 U/L (23-300)
--- NOTE | 2017-05-08 17:15 | PDOC H&P ---
History of Present Illness Admission Date/PCP: 05/08/17 15:03 LAURA TRAN MD History of Present Illness: CELENA STANTON is a 52 year old female, a very pleasant female, she was recently admitted on 05/02/2017 when she was diagnosed with perforated acute diverticulitis of the sigmoid colon, she was discharged on 05/05/2017 on p.o. antibiotic, ciprofloxacin and Flagyl for 2 weeks. She came to the office today for post hospital discharge follow-up , she complained of abdominal pain that was increasing in intensity, in the lower abdomen. She was examined in the office, on palpation of the abdomen it was tender, it was soft there was no guarding there was no signs of peritonitis. A stat CT scan of the abdomen and pelvis with IV contrast was obtained it shows the previously described diffuse wall thickening and luminal narrowing with surrounding inflammation involving the distal sigmoid colon was again identified and is more pronounced on the current study. The previously described small amount of inflammation and fluid and extraluminal air between the sigmoid colon and the vagina cuff was not definitively identified on the current study. Because the CT scan suggests worsening inflammation of the colon and the fact that she has increased abdominal pain she was admitted directly into the hospital for evaluation. I consulted with the surgeon on the phone He suggested that the patient does not need surgery at this time because of the ongoing inflammation but she will need prolonged IV antibiotic for like a month. Because patient inflammation got worse was on Cipro and Flagyl the antibiotic be changed to intravenous ertapenem, a PICC line will be started, she be discharged home in 2 days on IV antibiotic to continue outpatient for 30 days she be kept n.p.o. Past Medical History Cardiac Medical History: Reports: Hypertension - on meds in past/varies Hematology: Denies: Anemia Past Surgical History Past Surgical History: Reports: Hysterectomy - Vaginal for menorrhagia Social History Smoking Status: Never Smoker Frequency of Alcohol Use: Occasional Hx Recreational Drug Use: No Drugs: None Hx Prescription Drug Abuse: No Family History Family History: Reviewed & Not Pertinent Parental Family History Reviewed: Yes Children Family History Reviewed: Yes Sibling(s) Family History Reviewed.: Yes Medication/Allergy Home Medications: Furosemide [Lasix] 40 mg PO DAILYP PRN 05/02/17 Nebivolol HCl [Bystolic 5 mg Tablet] 5 mg PO QHS 05/02/17 Omeprazole 40 mg PO Q12 05/02/17 Ciprofloxacin HCl [Cipro 500 mg Tablet] 500 mg PO BID #28 tablet 05/05/17 Metronidazole [Flagyl 500 mg Tablet] 500 mg PO Q8H #42 tablet 05/05/17 Allergies/Adverse Reactions: No Known Allergies Allergy (Verified 05/02/17 13:22) Review of Systems Constitutional: ABSENT: chills, fever(s), headache(s), weight gain, weight loss Eyes: ABSENT: visual disturbances Ears: ABSENT: hearing changes Cardiovascular: ABSENT: chest pain, dyspnea on exertion, edema, orthropnea, palpitations Respiratory: ABSENT: cough, hemoptysis Gastrointestinal: PRESENT: abdominal pain Genitourinary: ABSENT: dysuria, hematuria Musculoskeletal: ABSENT: joint swelling Integumentary: ABSENT: rash, wounds Neurological: ABSENT: abnormal gait, abnormal speech, confusion, dizziness, focal weakness, syncope Psychiatric: ABSENT: anxiety, depression, homidical ideation, suicidal ideation Endocrine: ABSENT: cold intolerance, heat intolerance, menstrual abnormalities, polydipsia, polyuria Hematologic/Lymphatic: ABSENT: easy bleeding, easy bruising, lymphadenopathy Physical Exam Vital Signs: Intake & Output 05/07/17 05/08/17 05/09/17 06:59 06:59 06:59 Weight 72.6 kg General appearance: PRESENT: no acute distress, well-developed, well-nourished Head exam: PRESENT: atraumatic, normocephalic Eye exam: PRESENT: conjunctiva pink, EOMI, PERRLA Ear exam: PRESENT: normal external ear exam Mouth exam: PRESENT: moist, tongue midline Neck exam: PRESENT: full ROM. ABSENT: carotid bruit, JVD, lymphadenopathy, thyromegaly Respiratory exam: PRESENT: clear to auscultation reji Cardiovascular exam: PRESENT: RRR, +S1, +S2 Pulses: PRESENT: normal dorsalis pedis pul, +2 pedal pulses bilateral Vascular exam: PRESENT: normal capillary refill GI/Abdominal exam: PRESENT: normal bowel sounds, soft, tenderness Rectal exam: PRESENT: deferred Neurological exam: PRESENT: alert, awake, oriented to person, oriented to place , oriented to time, oriented to situation, CN II-XII grossly intact Psychiatric exam: PRESENT: appropriate affect, normal mood Skin exam: PRESENT: dry, intact, warm. ABSENT: cyanosis, rash Results Impressions: Abdomen/Pelvis CT 05/08/17 11:38 IMPRESSION: The previously described diffuse wall thickening and luminal narrowing with surrounding inflammation involving the distal sigmoid colon is again identified and appears slightly more pronounced on the current study. The previously described small amount of inflammation and fluid index luminal air between the sigmoid colon and vaginal cuff is not definitely identified on the current study. No other significant interval changes compared to the previous study. Other findings as noted above Assessment & Plan - Diagnosis (1) Diverticulitis of colon with perforation Qualifiers: Diverticulitis bleeding: without bleeding Qualified Code(s): K57.20 - Diverticulitis of large intestine with perforation and abscess without bleeding Is this a current diagnosis for this admission?: YesPlan: Patient is admitted into the hospital, she will be kept n.p.o., treated with intravenous ertapenem 1 g IV daily, PICC line will be obtained, she will require ertapenem for 30 days, hopefully should be discharged home in 2 days
[2017-05-08] MEDS ORDERED: ENOXAPARIN SODIUM INJ 40 MG/0.4 ML DISP.SYRIN SUBCUT ONE (17:30)
[2017-05-08 17:34] LABS: THYROID STIMULATING HORMONE 3.09 uIU/mL (0.47-4.68)
[2017-05-08 17:36] LABS: APPEARANCE,URINE CLEAR; BILIRUBIN,URINE NEGATIVE (NEGATIVE); GLUCOSE, URINE NEGATIVE (NEGATIVE); KETONES,URINE NEGATIVE (NEGATIVE); LEUKOCYTE ESTERASE,URINE NEGATIVE (NEGATIVE); NITRITE,URINE NEGATIVE (NEGATIVE); PROTEIN,URINE NEGATIVE (NEGATIVE); URINE SPECIFIC GRAVITY 1.027; UROBILINOGEN,URINE NEGATIVE mg/dL (<2.0)
[2017-05-08 17:51] LABS: URINE BARBITURATES SCREEN NEGATIVE; URINE METHADONE SCREEN NEGATIVE; URINE OPIATES LOW NEGATIVE; URINE PHENCYCLIDINE SCREEN NEGATIVE
[2017-05-08] MEDS: POTASSI CL 30 MEQ/D5-1/2NS 1L 30 MEQ/1,000 ML RTUINJ IV PRN (17:53)
[2017-05-08] MEDS ORDERED: ERTAPENEM SODIUM 1 GM in NORMAL SALINE 50 ML IV ONE (18:00)
[2017-05-08] MEDS ORDERED: ONDANSETRON HCL INJ/PF 4 MG/2 ML SDV IV PRN (19:04)
[2017-05-08] MEDS: KETOROLAC TROMETHAMINE INJ/PF 30 MG/1 ML SDV IV PRN (19:32)
[2017-05-08 19:50] LABS: ABSOLUTE BASOPHILS # (AUTO) 0.1 10^3/uL (0.0-0.2); ABSOLUTE EOSINOPHILS # (AUTO) 0.1 10^3/uL (0.0-0.6); ABSOLUTE LYMPHOCYTES (AUTO) 1.2 10^3/uL (0.5-4.7); ABSOLUTE MONOCYTES (AUTO) 0.9 10^3/uL (0.1-1.4); BASOPHILS % (AUTO) 0.8 % (0-2); EOSINOPHILS % (AUTO) 0.6 % (0-6); HEMATOCRIT 38.1 % (36.0-47.0); HEMOGLOBIN 12.7 g/dL (12.0-15.5); LYMPHOCYTES % (AUTO) 13.4 % (13-45); MEAN CORPUSCULAR HEMOGLOBIN 31.5 pg (27.0-33.4); MEAN CORPUSCULAR HGB CONC 33.4 g/dL (32.0-36.0); MEAN CORPUSCULAR VOLUME 94 fl (80-97); MONOCYTES % (AUTO) 9.5 % (3-13); RED BLOOD COUNT 4.04 10^6/uL (3.72-5.28); RED CELL DISTRIBUTION WIDTH 12.5 % (11.5-14.0); SEGMENTED NEUTROPHILS % (AUTO) 75.7 % (42-78); WHITE BLOOD COUNT 9.3 10^3/uL (4.0-10.5)
--- NOTE | 2017-05-08 20:02 | PDOC CONSULTATION ---
Consultation Consult reason:: recurrent sigmoid diverticulitis History of Present Illness Admission Date/PCP: 05/08/17 15:03 LAURA TRAN MD History of Present Illness: CELENA STANTON is a 52 year old female, admitted on 05/02/2017 for perforated but contained acute diverticulitis of the sigmoid colon. The patient was discharged on 05/05/2017 on oral Cipro and Flagyl for 2 weeks. She reports to have been feeling not too well until today when she experienced severe abdominal pain and she went t see her physician who recommended blood work, CT scan A/P with IV and oral contrast. She has been admmitted based on today's CT scan findings significant for diffuse wall thickening and luminal narrowing with surrounding inflammation involving the distal sigmoid colon which is more severe compared to hte previous CT scan. However, the previously described small amount of inflammation, fluid, and extraluminal air between the sigmoid colon and the vagina cuff was not definitively identified on the current study. Currently, she is very nauseated and has vomited once since she has been admitted. Past Medical History Cardiac Medical History: Reports: Hypertension - on meds in past/varies Denies: Coronary Artery Disease, Myocardial Infarction Pulmonary Medical History: Denies: Asthma, Bronchitis, Chronic Obstructive Pulmonary Disease (COPD), Pneumonia Neurological Medical History: Denies: Seizures Musculoskeltal Medical History: Denies: Arthritis Hematology: Denies: Anemia Past Surgical History Past Surgical History: Reports: Appendectomy, Hysterectomy - Vaginal for menorrhagia Social History Smoking Status: Never Smoker Frequency of Alcohol Use: Occasional Hx Recreational Drug Use: No Drugs: None Hx Prescription Drug Abuse: No Family History Family History: Reviewed & Not Pertinent Parental Family History Reviewed: Yes Children Family History Reviewed: Yes Sibling(s) Family History Reviewed.: Yes Medication/Allergy Home Medications: Furosemide [Lasix] 40 mg PO DAILYP PRN 05/02/17 Nebivolol HCl [Bystolic 5 mg Tablet] 5 mg PO QHS 05/02/17 Omeprazole 40 mg PO Q12 05/02/17 Ciprofloxacin HCl [Cipro 500 mg Tablet] 500 mg PO BID #28 tablet 05/05/17 Metronidazole [Flagyl 500 mg Tablet] 500 mg PO Q8H #42 tablet 05/05/17 Allergies/Adverse Reactions: No Known Allergies Allergy (Verified 05/02/17 13:22) Physical Exam Vital Signs: Temp Pulse Resp BP Pulse Ox 98.2 F 50 L 12 130/80 H 96 05/08/17 17:17 05/08/17 17:17 05/08/17 17:17 05/08/17 17:17 05/08/17 17:17 Intake & Output 05/07/17 05/08/17 05/09/17 06:59 06:59 06:59 Weight 72.6 kg General appearance: PRESENT: mild distress Head exam: PRESENT: atraumatic Eye exam: PRESENT: EOMI Respiratory exam: PRESENT: clear to auscultation reji Cardiovascular exam: PRESENT: RRR GI/Abdominal exam: PRESENT: normal bowel sounds, tenderness - in the left lateral quadrant and hypogastrium Rectal exam: PRESENT: deferred Musculoskeletal exam: PRESENT: full ROM Neurological exam: PRESENT: alert, normal gait Results Laboratory Results: 05/08/17 05/08/17 05/08/17 16:29 16:29 16:29 Ammonia 17.5 Amylase 54 Lipase 138.5 TSH 3.09 Free T4 1.27 Urine Color Urine Appearance Urine pH Ur Specific [place] Urine Protein Urine Glucose (UA) Urine Ketones Urine Blood Urine Nitrite Ur Leukocyte Esterase Urine WBC (Auto) Urine RBC (Auto) 05/08/17 16:45 Ammonia Amylase Lipase TSH Free T4 Urine Color YELLOW Urine Appearance CLEAR Urine pH 5.0 Ur Specific [place] 1.027 Urine Protein NEGATIVE Urine Glucose (UA) NEGATIVE Urine Ketones NEGATIVE Urine Blood SMALL H Urine Nitrite NEGATIVE Ur Leukocyte Esterase NEGATIVE Urine WBC (Auto) 1 Urine RBC (Auto) 0 Impressions: Abdomen/Pelvis CT 05/08/17 11:38 IMPRESSION: The previously described diffuse wall thickening and luminal narrowing with surrounding inflammation involving the distal sigmoid colon is again identified and appears slightly more pronounced on the current study. The previously described small amount of inflammation and fluid index luminal air between the sigmoid colon and vaginal cuff is not definitely identified on the current study. No other significant interval changes compared to the previous study. Other findings as noted above Assessment & Plan - Diagnosis (1) Diverticulitis of sigmoid colon Is this a current diagnosis for this admission?: Yes - Plan Summary Plan Summary: Assessment: Abdominal pain, poor appetite and vomititng CT scan A/P significant for persistent sigmoid diverticulitis, without evidence of perforation; the free air identified during the previous admission last week is not identified Blood work pending (CBC, CMP) Plan: NPO IVF IV antibiotics: patient currently on Invanz No surgical intervention contemplated on this patient at this time.
[2017-05-08 20:06] LABS: ALANINE AMINOTRANSFERASE 35 U/L (9-52); ALBUMIN 3.4 g/dL (3.5-5.0); ALKALINE PHOSPHATASE 39 U/L (38-126); ANION GAP 13 (5-19); ASPARTATE AMINO TRANSFERASE 41 U/L (14-36); BILIRUBIN,DIRECT 0.4 mg/dL (0.0-0.4); BILIRUBIN,TOTAL 0.7 mg/dL (0.2-1.3); BLOOD UREA NITROGEN 12 mg/dL (7-20); CALCIUM 8.8 mg/dL (8.4-10.2); CARBON DIOXIDE 21 mmol/L (22-30); CHLORIDE 105 mmol/L (98-107); CREATININE RESULT 1.72 mg/dL (0.52-1.25); GLUCOSE 89 mg/dL (75-110); POTASSIUM 3.8 mmol/L (3.6-5.0); SODIUM 139.4 mmol/L (137-145); TOTAL PROTEIN 6.2 g/dL (6.3-8.2)
[2017-05-08 21:17] LABS: HEMATOCRIT 36.3 % (36.0-47.0); HEMOGLOBIN 12.1 g/dL (12.0-15.5); MEAN CORPUSCULAR HEMOGLOBIN 31.2 pg (27.0-33.4); MEAN CORPUSCULAR HGB CONC 33.3 g/dL (32.0-36.0); MEAN CORPUSCULAR VOLUME 94 fl (80-97); RED BLOOD COUNT 3.87 10^6/uL (3.72-5.28); RED CELL DISTRIBUTION WIDTH 12.7 % (11.5-14.0); WHITE BLOOD COUNT 9.4 10^3/uL (4.0-10.5)
[2017-05-08 21:30] LABS: ALANINE AMINOTRANSFERASE 43 U/L (9-52); ALBUMIN 3.3 g/dL (3.5-5.0); ALKALINE PHOSPHATASE 38 U/L (38-126); ANION GAP 11 (5-19); ASPARTATE AMINO TRANSFERASE 37 U/L (14-36); BILIRUBIN,DIRECT 0.3 mg/dL (0.0-0.4); BILIRUBIN,TOTAL 0.6 mg/dL (0.2-1.3); BLOOD UREA NITROGEN 10 mg/dL (7-20); CALCIUM 8.4 mg/dL (8.4-10.2); CARBON DIOXIDE 22 mmol/L (22-30); CHLORIDE 107 mmol/L (98-107); CREATININE RESULT 1.48 mg/dL (0.52-1.25); GLUCOSE 120 mg/dL (75-110); POTASSIUM 3.6 mmol/L (3.6-5.0); SODIUM 140.1 mmol/L (137-145); TOTAL PROTEIN 6.2 g/dL (6.3-8.2)
[2017-05-09] MEDS: POTASSI CL 30 MEQ/D5-1/2NS 1L 30 MEQ/1,000 ML RTUINJ IV PRN ×2 (03:44→17:27)
[2017-05-09] MEDS: KETOROLAC TROMETHAMINE INJ/PF 30 MG/1 ML SDV IV PRN (03:44)
[2017-05-09 06:29] LABS: ANION GAP 11 (5-19); BLOOD UREA NITROGEN 9 mg/dL (7-20); CALCIUM 8.3 mg/dL (8.4-10.2); CARBON DIOXIDE 23 mmol/L (22-30); CHLORIDE 107 mmol/L (98-107); CHOLESTEROL 120.44 mg/dL (0-200); CREATININE RESULT 1.26 mg/dL (0.52-1.25); DIRECT LDL 41 mg/dL (<100); Direct HDL 45 mg/dL (>40); GLUCOSE 107 mg/dL (75-110); SODIUM 140.8 mmol/L (137-145); TRIGLYCERIDES 98 mg/dL (<150); VLDL CHOLESTEROL 19.6 mg/dL (10-31)
[2017-05-09 06:37] LABS: ABSOLUTE BASOPHILS # (AUTO) 0.1 10^3/uL (0.0-0.2); ABSOLUTE LYMPHOCYTES (AUTO) 1.5 10^3/uL (0.5-4.7); ABSOLUTE MONOCYTES (AUTO) 0.8 10^3/uL (0.1-1.4); ABSOLUTE NEUT (AUTO) 5.7 10^3/uL (1.7-8.2); BASOPHILS % (AUTO) 0.6 % (0-2); EOSINOPHILS % (AUTO) 0.6 % (0-6); HEMATOCRIT 36.4 % (36.0-47.0); HEMOGLOBIN 12.3 g/dL (12.0-15.5); HGB HCT DIFFERENCE 0.5; MEAN CORPUSCULAR HEMOGLOBIN 31.6 pg (27.0-33.4); MEAN CORPUSCULAR HGB CONC 33.8 g/dL (32.0-36.0); MEAN CORPUSCULAR VOLUME 93 fl (80-97); MONOCYTES % (AUTO) 10.2 % (3-13); RED CELL DISTRIBUTION WIDTH 12.7 % (11.5-14.0); SEGMENTED NEUTROPHILS % (AUTO) 69.6 % (42-78); WHITE BLOOD COUNT 8.2 10^3/uL (4.0-10.5)
--- NOTE | 2017-05-09 07:57 | PDOC PROGRESS REPORT ---
Subjective Progress Note for:: 05/09/17 Subjective:: Feels better. Physical Exam Vital Signs: Temp Pulse Resp BP Pulse Ox 97.8 F 47 L 16 117/70 99 05/08/17 23:47 05/08/17 23:47 05/08/17 23:47 05/08/17 23:47 05/08/17 23:47 Intake & Output 05/08/17 05/09/17 05/10/17 06:59 06:59 06:59 Intake Total 10 Output Total 1300 Balance -1290 Weight 71.9 kg General appearance: PRESENT: no acute distress, cooperative Respiratory exam: PRESENT: clear to auscultation reji Cardiovascular exam: PRESENT: RRR GI/Abdominal exam: PRESENT: other - Soft, nondistended, very mild lower abdominal tenderness. Results Laboratory Results: 05/09/17 04:00 05/09/17 04:00 05/08/17 05/08/17 05/08/17 16:29 16:29 16:29 WBC RBC Hgb Hct MCV MCH MCHC RDW Plt Count Seg Neutrophils % Lymphocytes % Monocytes % Eosinophils % Basophils % Absolute Neutrophils Absolute Lymphocytes Absolute Monocytes Absolute Eosinophils Absolute Basophils Sodium Potassium Chloride Carbon Dioxide Anion Gap BUN Creatinine Est GFR ( Amer) Est GFR (Non-Af Amer) Glucose Calcium Total Bilirubin AST ALT Alkaline Phosphatase Ammonia 17.5 Total Protein Albumin Triglycerides Cholesterol LDL Cholesterol Direct VLDL Cholesterol HDL Cholesterol Amylase 54 Lipase 138.5 TSH 3.09 Free T4 1.27 Urine Color Urine Appearance Urine pH Ur Specific [place] Urine Protein Urine Glucose (UA) Urine Ketones Urine Blood Urine Nitrite Ur Leukocyte Esterase Urine WBC (Auto) Urine RBC (Auto) 05/08/17 05/08/17 05/08/17 16:29 16:29 16:45 WBC 9.3 RBC 4.04 Hgb 12.7 Hct 38.1 MCV 94 MCH 31.5 MCHC 33.4 RDW 12.5 Plt Count 279 Seg Neutrophils % 75.7 Lymphocytes % 13.4 Monocytes % 9.5 Eosinophils % 0.6 Basophils % 0.8 Absolute Neutrophils 7.0 Absolute Lymphocytes 1.2 Absolute Monocytes 0.9 Absolute Eosinophils 0.1 Absolute Basophils 0.1 Sodium 139.4 Potassium 3.8 Chloride 105 Carbon Dioxide 21 L Anion Gap 13 BUN 12 Creatinine 1.72 H Est GFR ( Amer) 37 L Est GFR (Non-Af Amer) 31 L Glucose 89 Calcium 8.8 Total Bilirubin 0.7 AST 41 H ALT 35 Alkaline Phosphatase 39 Ammonia Total Protein 6.2 L Albumin 3.4 L Triglycerides Cholesterol LDL Cholesterol Direct VLDL Cholesterol HDL Cholesterol Amylase Lipase TSH Free T4 Urine Color YELLOW Urine Appearance CLEAR Urine pH 5.0 Ur Specific [place] 1.027 Urine Protein NEGATIVE Urine Glucose (UA) NEGATIVE Urine Ketones NEGATIVE Urine Blood SMALL H Urine Nitrite NEGATIVE Ur Leukocyte Esterase NEGATIVE Urine WBC (Auto) 1 Urine RBC (Auto) 0 05/08/17 05/08/17 05/09/17 21:04 21:04 04:00 WBC 9.4 8.2 RBC 3.87 3.90 Hgb 12.1 12.3 Hct 36.3 36.4 MCV 94 93 MCH 31.2 31.6 MCHC 33.3 33.8 RDW 12.7 12.7 Plt Count 280 286 Seg Neutrophils % 69.6 Lymphocytes % 19.0 Monocytes % 10.2 Eosinophils % 0.6 Basophils % 0.6 Absolute Neutrophils 5.7 Absolute Lymphocytes 1.5 Absolute Monocytes 0.8 Absolute Eosinophils 0.0 Absolute Basophils 0.1 Sodium 140.1 Potassium 3.6 Chloride 107 Carbon Dioxide 22 Anion Gap 11 BUN 10 Creatinine 1.48 H Est GFR ( Amer) 44 L Est GFR (Non-Af Amer) 37 L Glucose 120 H Calcium 8.4 Total Bilirubin 0.6 AST 37 H ALT 43 Alkaline Phosphatase 38 Ammonia Total Protein 6.2 L Albumin 3.3 L Triglycerides Cholesterol LDL Cholesterol Direct VLDL Cholesterol HDL Cholesterol Amylase Lipase TSH Free T4 Urine Color Urine Appearance Urine pH Ur Specific [place] Urine Protein Urine Glucose (UA) Urine Ketones Urine Blood Urine Nitrite Ur Leukocyte Esterase Urine WBC (Auto) Urine RBC (Auto) 05/09/17 04:00 WBC RBC Hgb Hct MCV MCH MCHC RDW Plt Count Seg Neutrophils % Lymphocytes % Monocytes % Eosinophils % Basophils % Absolute Neutrophils Absolute Lymphocytes Absolute Monocytes Absolute Eosinophils Absolute Basophils Sodium 140.8 Potassium 4.0 Chloride 107 Carbon Dioxide 23 Anion Gap 11 BUN 9 Creatinine 1.26 H Est GFR ( Amer) 54 L Est GFR (Non-Af Amer) 44 L Glucose 107 Calcium 8.3 L Total Bilirubin AST ALT Alkaline Phosphatase Ammonia Total Protein Albumin Triglycerides 98 Cholesterol 120.44 LDL Cholesterol Direct 41 VLDL Cholesterol 19.6 HDL Cholesterol 45 Amylase Lipase TSH Free T4 Urine Color Urine Appearance Urine pH Ur Specific [place] Urine Protein Urine Glucose (UA) Urine Ketones Urine Blood Urine Nitrite Ur Leukocyte Esterase Urine WBC (Auto) Urine RBC (Auto) Impressions: Abdomen/Pelvis CT 05/08/17 11:38 IMPRESSION: The previously described diffuse wall thickening and luminal narrowing with surrounding inflammation involving the distal sigmoid colon is again identified and appears slightly more pronounced on the current study. The previously described small amount of inflammation and fluid index luminal air between the sigmoid colon and vaginal cuff is not definitely identified on the current study. No other significant interval changes compared to the previous study. Other findings as noted above Assessment & Plan - Diagnosis (1) Diverticulitis of sigmoid colon Is this a current diagnosis for this admission?: YesPlan: Would be better if we can cool the inflammation down prior to her sigmoidectomy to allow safer anastomosis. Hold off diet for 1 more day. If she continues to do well resume diet tomorrow and switch her to p.o. antibiotics. Watch her in the hospital for another day on p.o. antibiotics and possibly discharge patient home on Saturday if she does well with follow-up with surgical clinic for scheduling of her semi-elective sigmoid colon resection.
[2017-05-09] MEDS: ENOXAPARIN SODIUM INJ 40 MG/0.4 ML DISP.SYRIN SUBCUT SCH (09:05)
--- NOTE | 2017-05-09 11:13 | RADIOLOGY REPORT (SQ) ---
EXAM DESCRIPTION: U/S GUIDE FOR VASCULAR ACCESS COMPLETE DATE/TIME: 05/09/2017 10:56 am REASON FOR STUDY: IV ACCESS K57.21 DVTRCLI OF LG INT W PERFORATION AND ABSCESS W BLEEDIN FINDINGS: Please see combined report for performance of procedure and radiologic supervision and int erpretation. IMPRESSION: Please see combined report for performance of procedure and radiologic supervision and i nterpretation.
--- NOTE | 2017-05-09 11:13 | RADIOLOGY REPORT (SQ) ---
EXAM DESCRIPTION: FLUORO/CV PLACEMENT COMPLETE DATE/TIME: 05/09/2017 10:56 am REASON FOR STUDY: IV ABX K57.21 DVTRCLI OF LG INT W PERFORATION AND ABSCESS W BLEEDIN FINDINGS: Please see combined report for performance of procedure and radiologic supervision and int erpretation. IMPRESSION: Please see combined report for performance of procedure and radiologic supervision and i nterpretation.
--- NOTE | 2017-05-09 11:13 | RADIOLOGY REPORT (SQ) ---
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 FLUOROSCOPY TIME: 29 seconds 2 images saved to PACS. TECHNIQUE: Fluoroscopic and ultrasound guided PICC placement. LIMITATIONS: None. PROCEDURE: After written consent and assessment were obtained, the patient was brought into the fluo roscopy room and place supine on the table. Ultrasound was used on the patient's left arm for PICC a ccess. The left arm was prepped and draped in a sterile fashion along with the ultrasound probe. The entry site was anesthetized with 1% lidocaine. A 21 gauge 7 cm needle was advanced through the skin a nd into the basilic vein under live ultrasound guidance. An ultrasound image was saved to PACS confi rming access site. A .018 guide wire was then inserted through the needle and into the venous system . The needle was the removed and an 11 blade scalpel was used to make a 1cm skin incision. A 5 fr pe el-away sheath was advanced over the wire and into the venous system. A measurement was then made usi ng the existing wire and live fluoroscopic guidance. The wire was then removed and the trimmed. The P ICC was advanced through the peel-away sheath and into the venous system. The peel-away sheath was re moved and the catheter was adhered to the patients arm with a stat lock. The catheter was then aspira jacqueline and flushed and a sterile bandage was placed over the access site. A fluoroscopic spot image was saved to PACS confirming the catheter tip within the superior vena cava. IMPRESSION: SUCCESSFUL PLACEMENT OF A 5 FR dual LUMEN 39 CM PICC IN THE basilic VEIN. COMMENT: Patient medication list reviewed: Yes. Quality ID [id number]: Final reports for procedures using fluoroscopy that document radiation exposure haydee sary, or exposure time and number of fluorographic images (if radiation exposure indices are not avail able) Quality ID #[id number]: The patient was prepped and draped using maximum sterile barrier technique including cap, mask, sterile gown, sterile gloves, a large sterile sheet, hand hygiene, and 2% Chlorhexidine fo r cutaneous antisepsis. When ultrasound is used, sterile ultrasound techniques are followed requiring sterile gel and sterile probes. TECHNICAL DOCUMENTATION: JOB ID: [id number] [facility] [employer]- All Rights Reserved
[2017-05-09] MEDS ORDERED: KETOROLAC TROMETHAMINE INJ/PF 30 MG/1 ML SDV IV PRN (11:16)
[2017-05-09] MEDS: ERTAPENEM SODIUM 1 GM in NORMAL SALINE 50 ML IV SCH (17:27)
--- NOTE | 2017-05-09 21:17 | PDOC PROGRESS REPORT ---
Subjective Progress Note for:: 05/09/17 Subjective:: She was seen by the bedside, it seems that she probably sustained acute kidney injury from the combination of contrast study and also the IV Toradol. She is presently on intravenous ertapenem, she was seen by the surgeon, the plan is for to go home on IV antibiotic for 2 weeks Physical Exam Vital Signs: Temp Pulse Resp BP Pulse Ox 98.6 F 53 L 16 129/78 H 99 05/09/17 20:09 05/09/17 20:09 05/09/17 20:09 05/09/17 20:09 05/09/17 20:09 Intake & Output 05/08/17 05/09/17 05/10/17 06:59 06:59 06:59 Intake Total 10 340 Output Total 1300 300 Balance -1290 40 Weight 71.9 kg General appearance: PRESENT: no acute distress, well-developed, well-nourished Head exam: PRESENT: atraumatic, normocephalic Eye exam: PRESENT: conjunctiva pink, EOMI, PERRLA. ABSENT: scleral icterus Ear exam: PRESENT: normal external ear exam Mouth exam: PRESENT: moist, tongue midline Neck exam: PRESENT: full ROM Respiratory exam: PRESENT: clear to auscultation reji Cardiovascular exam: PRESENT: RRR, +S1, +S2 Vascular exam: PRESENT: normal capillary refill GI/Abdominal exam: PRESENT: normal bowel sounds, soft, tenderness Rectal exam: PRESENT: deferred Neurological exam: PRESENT: alert, awake, oriented to person, oriented to place , oriented to time, oriented to situation, CN II-XII grossly intact Psychiatric exam: PRESENT: appropriate affect, normal mood Skin exam: PRESENT: dry, intact, warm Results Laboratory Results: 05/09/17 04:00 05/09/17 04:00 05/08/17 05/08/17 05/09/17 21:04 21:04 04:00 WBC 9.4 8.2 RBC 3.87 3.90 Hgb 12.1 12.3 Hct 36.3 36.4 MCV 94 93 MCH 31.2 31.6 MCHC 33.3 33.8 RDW 12.7 12.7 Plt Count 280 286 Seg Neutrophils % 69.6 Lymphocytes % 19.0 Monocytes % 10.2 Eosinophils % 0.6 Basophils % 0.6 Absolute Neutrophils 5.7 Absolute Lymphocytes 1.5 Absolute Monocytes 0.8 Absolute Eosinophils 0.0 Absolute Basophils 0.1 Sodium 140.1 Potassium 3.6 Chloride 107 Carbon Dioxide 22 Anion Gap 11 BUN 10 Creatinine 1.48 H Est GFR ( Amer) 44 L Est GFR (Non-Af Amer) 37 L Glucose 120 H Calcium 8.4 Total Bilirubin 0.6 AST 37 H ALT 43 Alkaline Phosphatase 38 Total Protein 6.2 L Albumin 3.3 L Triglycerides Cholesterol LDL Cholesterol Direct VLDL Cholesterol HDL Cholesterol 05/09/17 04:00 WBC RBC Hgb Hct MCV MCH MCHC RDW Plt Count Seg Neutrophils % Lymphocytes % Monocytes % Eosinophils % Basophils % Absolute Neutrophils Absolute Lymphocytes Absolute Monocytes Absolute Eosinophils Absolute Basophils Sodium 140.8 Potassium 4.0 Chloride 107 Carbon Dioxide 23 Anion Gap 11 BUN 9 Creatinine 1.26 H Est GFR ( Amer) 54 L Est GFR (Non-Af Amer) 44 L Glucose 107 Calcium 8.3 L Total Bilirubin AST ALT Alkaline Phosphatase Total Protein Albumin Triglycerides 98 Cholesterol 120.44 LDL Cholesterol Direct 41 VLDL Cholesterol 19.6 HDL Cholesterol 45 Impressions: Abdomen/Pelvis CT 05/08/17 11:38 IMPRESSION: The previously described diffuse wall thickening and luminal narrowing with surrounding inflammation involving the distal sigmoid colon is again identified and appears slightly more pronounced on the current study. The previously described small amount of inflammation and fluid index luminal air between the sigmoid colon and vaginal cuff is not definitely identified on the current study. No other significant interval changes compared to the previous study. Other findings as noted above Guidance Fluoroscopy 05/09/17 00:00 IMPRESSION: Please see combined report for performance of procedure and radiologic supervision and interpretation. Interventional Vascular Procedure 05/09/17 00:00 IMPRESSION: Please see combined report for performance of procedure and radiologic supervision and interpretation. PICC Line Insertion 05/09/17 00:00 IMPRESSION: SUCCESSFUL PLACEMENT OF A 5 FR dual LUMEN 39 CM PICC IN THE basilic VEIN. Assessment & Plan - Diagnosis (1) Diverticulitis of colon with perforation Qualifiers: Diverticulitis bleeding: without bleeding Qualified Code(s): K57.20 - Diverticulitis of large intestine with perforation and abscess without bleeding Is this a current diagnosis for this admission?: YesPlan: She will continue IV antibiotic, she was seen by the surgeon
[2017-05-10] MEDS ORDERED: POTASSI CL 30 MEQ/D5-1/2NS 1L 30 MEQ/1,000 ML RTUINJ IV ONE (05:13)
[2017-05-10 05:18] LABS: ABSOLUTE EOSINOPHILS # (AUTO) 0.1 10^3/uL (0.0-0.6); ABSOLUTE LYMPHOCYTES (AUTO) 1.8 10^3/uL (0.5-4.7); ABSOLUTE MONOCYTES (AUTO) 0.8 10^3/uL (0.1-1.4); ABSOLUTE NEUT (AUTO) 5.5 10^3/uL (1.7-8.2); BASOPHILS % (AUTO) 0.4 % (0-2); EOSINOPHILS % (AUTO) 1.1 % (0-6); HEMATOCRIT 37.7 % (36.0-47.0); HEMOGLOBIN 12.7 g/dL (12.0-15.5); HGB HCT DIFFERENCE 0.4; LYMPHOCYTES % (AUTO) 21.8 % (13-45); MEAN CORPUSCULAR HEMOGLOBIN 31.5 pg (27.0-33.4); MEAN CORPUSCULAR HGB CONC 33.7 g/dL (32.0-36.0); MEAN CORPUSCULAR VOLUME 93 fl (80-97); MONOCYTES % (AUTO) 10.2 % (3-13); RED BLOOD COUNT 4.04 10^6/uL (3.72-5.28); RED CELL DISTRIBUTION WIDTH 12.4 % (11.5-14.0); SEGMENTED NEUTROPHILS % (AUTO) 66.5 % (42-78); WHITE BLOOD COUNT 8.2 10^3/uL (4.0-10.5)
[2017-05-10 05:37] LABS: ANION GAP 11 (5-19); BLOOD UREA NITROGEN 5 mg/dL (7-20); CALCIUM 8.1 mg/dL (8.4-10.2); CARBON DIOXIDE 20 mmol/L (22-30); CHLORIDE 108 mmol/L (98-107); CREATININE RESULT 0.91 mg/dL (0.52-1.25); GLUCOSE 96 mg/dL (75-110); POTASSIUM 4.2 mmol/L (3.6-5.0); SODIUM 139.1 mmol/L (137-145)
[2017-05-10] MEDS ORDERED: MORPHINE SULFATE 10 MG/ML INJ IV PRN (06:12)
[2017-05-10] MEDS: ENOXAPARIN SODIUM INJ 40 MG/0.4 ML DISP.SYRIN SUBCUT SCH (09:43)
--- NOTE | 2017-05-10 15:31 | PROGRESS NOTE E ---
Progress Note NAME: CELENA STANTON : 1965 AGE: 52Y DATE: 05/10/2017 ROOM: 406 SUBJECTIVE/OBJECTIVE: The patient has minimal pains in the left lower quadrant and she is hungry. She is afebrile and her white count remains normal. Her abdomen is soft with minimal tenderness in the suprapubic and left lower quadrant areas. She just came back for a PICC line for IV antibiotic therapy. PLAN: The plan is to start her on clear liquids today and if she tolerates, possible discharge tomorrow on a full-liquid diet. DICTATING PHYSICIAN: WIL SHARMA M.D. [id number] PHY#: [id number] ID: [id number] JOB#: [id number] ACCT: [id number] cc: >
[2017-05-10] MEDS: ERTAPENEM SODIUM 1 GM in NORMAL SALINE 50 ML IV SCH (18:18)
[2017-05-10 19:39] VITALS: BP 130/80
--- NOTE | 2017-05-10 21:35 | PDOC DISCHARGE SUMMARY ---
General - Admit/Disc Date/PCP Admission Date/Primary Care Provider: 05/08/17 15:03 LAURA TRAN MD Discharge Date: 05/10/17 - Discharge Diagnosis (1) Diverticulitis of colon with perforation Is this a current diagnosis for this admission?: Yes - Additional Information Discharge Activity: Activity As Tolerated, Balance Activity w/Rest Home Medications: Nebivolol HCl [Bystolic] 5 mg PO DAILY 05/09/17 Omeprazole 40 mg PO BID 05/09/17 History of Present Illness History of Present Illness: CELENA STANTON is a 52 year old female, a very pleasant female, she was recently admitted on 05/02/2017 when she was diagnosed with perforated acute diverticulitis of the sigmoid colon, she was discharged on 05/05/2017 on p.o. antibiotic, ciprofloxacin and Flagyl for 2 weeks. She came to the office today for post hospital discharge follow-up , she complained of abdominal pain that was increasing in intensity, in the lower abdomen. She was examined in the office, on palpation of the abdomen it was tender, it was soft there was no guarding there was no signs of peritonitis. A stat CT scan of the abdomen and pelvis with IV contrast was obtained it shows the previously described diffuse wall thickening and luminal narrowing with surrounding inflammation involving the distal sigmoid colon was again identified and is more pronounced on the current study. The previously described small amount of inflammation and fluid and extraluminal air between the sigmoid colon and the vagina cuff was not definitively identified on the current study. Because the CT scan suggests worsening inflammation of the colon and the fact that she has increased abdominal pain she was admitted directly into the hospital for evaluation. I consulted with the surgeon on the phone He suggested that the patient does not need surgery at this time because of the ongoing inflammation but she will need prolonged IV antibiotic for like a month. Because patient inflammation got worse was on Cipro and Flagyl the antibiotic be changed to intravenous ertapenem, a PICC line will be started, she be discharged home in 2 days on IV antibiotic to continue outpatient for 30 days she be kept n.p.o. Hospital Course Hospital Course: Patient was admitted because of worsening acute perforated diverticulitis, she was discharged originally on p.o. Cipro and Flagyl because of acute perforated diverticulitis the plan was for patient to take the antibiotic for 2 weeks after which colectomy would be electively planned. Patient continued to be symptomatic a repeat CT scan of the abdomen and pelvis was done, it showed worsening , colitis, she was readmitted, antibiotic was changed to intravenous ertapenem. She was seen by the surgeon the plan is for patient to continue IV antibiotic for 2 weeks, a PICC line was inserted yesterday and she was discharged home today. Physical Exam Vital Signs: Temp Pulse Resp BP Pulse Ox 98.2 F 56 L 14 130/80 H 97 05/10/17 19:32 05/10/17 19:32 05/10/17 19:32 05/10/17 19:32 05/10/17 19:32 Intake & Output 05/09/17 05/10/17 05/11/17 06:59 06:59 06:59 Intake Total 10 350 190 Output Total 1300 700 600 Balance -1290 -350 -410 Weight 71.9 kg 72.5 kg General appearance: PRESENT: no acute distress, well-developed, well-nourished Head exam: PRESENT: atraumatic, normocephalic Eye exam: PRESENT: conjunctiva pink, EOMI, PERRLA. ABSENT: scleral icterus Ear exam: PRESENT: normal external ear exam Mouth exam: PRESENT: moist, tongue midline Neck exam: PRESENT: full ROM. ABSENT: carotid bruit, JVD, lymphadenopathy, thyromegaly Respiratory exam: PRESENT: clear to auscultation reji Cardiovascular exam: PRESENT: RRR, +S1, +S2 Pulses: PRESENT: normal dorsalis pedis pul, +2 pedal pulses bilateral Vascular exam: PRESENT: normal capillary refill GI/Abdominal exam: PRESENT: normal bowel sounds, soft Rectal exam: PRESENT: deferred Neurological exam: PRESENT: alert, awake, oriented to person, oriented to place , oriented to time, oriented to situation, CN II-XII grossly intact. ABSENT: motor sensory deficit Psychiatric exam: PRESENT: appropriate affect, normal mood Skin exam: PRESENT: dry, intact, warm Results Laboratory Results: 05/10/17 04:45 05/10/17 04:45 05/10/17 05/10/17 04:45 04:45 WBC 8.2 RBC 4.04 Hgb 12.7 Hct 37.7 MCV 93 MCH 31.5 MCHC 33.7 RDW 12.4 Plt Count 278 Seg Neutrophils % 66.5 Lymphocytes % 21.8 Monocytes % 10.2 Eosinophils % 1.1 Basophils % 0.4 Absolute Neutrophils 5.5 Absolute Lymphocytes 1.8 Absolute Monocytes 0.8 Absolute Eosinophils 0.1 Absolute Basophils 0.0 Sodium 139.1 Potassium 4.2 Chloride 108 H Carbon Dioxide 20 L Anion Gap 11 BUN 5 L Creatinine 0.91 Est GFR ( Amer) > 60 Est GFR (Non-Af Amer) > 60 Glucose 96 Calcium 8.1 L 05/08/17 16:45 Clean Catch Midstream Urine Culture - Final NO GROWTH 2 DAYS Impressions: Abdomen/Pelvis CT 05/08/17 11:38 IMPRESSION: The previously described diffuse wall thickening and luminal narrowing with surrounding inflammation involving the distal sigmoid colon is again identified and appears slightly more pronounced on the current study. The previously described small amount of inflammation and fluid index luminal air between the sigmoid colon and vaginal cuff is not definitely identified on the current study. No other significant interval changes compared to the previous study. Other findings as noted above Guidance Fluoroscopy 05/09/17 00:00 IMPRESSION: Please see combined report for performance of procedure and radiologic supervision and interpretation. Interventional Vascular Procedure 05/09/17 00:00 IMPRESSION: Please see combined report for performance of procedure and radiologic supervision and interpretation. PICC Line Insertion 05/09/17 00:00 IMPRESSION: SUCCESSFUL PLACEMENT OF A 5 FR dual LUMEN 39 CM PICC IN THE basilic VEIN.
== END 2017-05-10 19:54 | disposition home or self-care (01) | DRG 392 ==
LOC: RAD 11:35 → 4N 15:03
PROVIDERS: ADMIT Internal Medicine; ATTEND Internal Medicine
PROC: 02HV33Z Insertion of Infusion Device into Superior Vena Cava, Percutaneous Approach (ICD-10-PCS; principal; 2017-05-09)
PROC: B548ZZA Ultrasonography of Superior Vena Cava, Guidance (ICD-10-PCS; 2017-05-09)
PROC: B5181ZA Fluoroscopy of Superior Vena Cava using Low Osmolar Contrast, Guidance (ICD-10-PCS; 2017-05-09)
DX: K57.20 Diverticulitis of large intestine with perforation and abscess without bleeding (principal); N17.8 Other acute kidney failure; I10 Essential (primary) hypertension; N14.1 Nephropathy induced by other drugs, medicaments and biological substances; T39.8X5A Adverse effect of other nonopioid analgesics and antipyretics, not elsewhere classified, initial encounter; T50.8X5A Adverse effect of diagnostic agents, initial encounter; Z90.710 Acquired absence of both cervix and uterus
CPT/HCPCS: 36415; 36569; 74177; 76937; 77001; 80048; 80053; 80061; 80307; 81001; 82140; 82150; 83690; 84439; 84443; 85025; 85027; 85730; 87040; 87086; J1335; J1642; J1885; J2270; J3480

== ENCOUNTER 2017-05-22 10:27 | Emergency (ER) | payer BC ==
--- NOTE | 2017-05-22 10:59 | ER Document Report ---
ED Medical Screen (RME) - General Chief Complaint: Vaginal Bleeding Stated Complaint: ABDOMINAL PAIN Time Seen by Provider: 05/22/17 10:57 Notes: Patient was admitted to this hospital on 05/02/2017 for perforated diverticulitis. She was sent home on oral antibiotics. She had a return approximately 1 week later because she was having increased abdominal pain. At that time it was found that she had an abscess that had increased and she was placed on home IV antibiotics. She states yesterday she noticed that she was having some vaginal bleeding. She states the pain is better. This morning no bleeding but she does have some pink discharge from her vagina. She has had a hysterectomy. She called her doctor, dr valdes. 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 TRAVEL OUTSIDE OF THE [place] IN LAST 30 DAYS: No - Related Data Allergies/Adverse Reactions: No Known Allergies Allergy (Verified 05/21/17 08:53) Past Medical History - Past Medical History Cardiac Medical History: Reports: Hx Hypertension, Hx Heart Murmur Denies: Hx Atrial Fibrillation, Hx Congestive Heart Failure, Hx Coronary Artery Disease, Hx Heart Attack, Hx Hypercholesterolemia, Hx Peripheral Vascular Disease, Hx Pulmonary Embolism Pulmonary Medical History: Denies: Hx Asthma, Hx Bronchitis, Hx COPD, Hx Pneumonia, Hx Respiratory Failure, Hx Sleep Apnea, Hx Tuberculosis Neurological Medical History: Denies: Hx Cerebrovascular Accident, Hx Seizures Renal/ Medical History: Denies: Hx Ovarian Cysts, Hx Peritoneal Dialysis, Hx Pelvic Inflammatory Disease Malignancy Medical History: Denies: Hx Breast Cancer, Hx Lung Cancer, Hx Ovarian Cancer GI Medical History: Reports: Hx Gastroesophageal Reflux Disease. Denies: Hx Crohn's Disease, Hx Hiatal Hernia, Hx Irritable Bowel, Hx Liver Failure, Hx Ulcer Musculoskeltal Medical History: Denies Hx Arthritis, Denies Hx Fibromyalgia, Denies Hx Multiple Sclerosis, Denies Hx Muscular Dystrophy Psychiatric Medical History: Denies: Hx Dementia Traumatic Medical History: Denies: Hx Fractures Past Surgical History: Reports: Hx Appendectomy, Hx Hysterectomy. Denies: Hx Bowel Surgery, Hx Section, Hx Cholecystectomy, Hx Colostomy, Hx Coronary Artery Bypass Graft, Hx Gastric Bypass Surgery, Hx Herniorrhaphy, Hx Mastectomy, Hx Pacemaker, Hx Tonsillectomy, Hx Tubal Ligation - Immunizations Hx Diphtheria, Pertussis, Tetanus Vaccination: No Physical Exam - Vital signs Vitals: Temp Pulse Resp BP Pulse Ox 97.9 F 55 L 20 142/92 H 98 05/22/17 10:32 05/22/17 10:32 05/22/17 10:32 05/22/17 10:32 05/22/17 10:32 Course - Vital Signs Vital signs: Temp Pulse Resp BP Pulse Ox 97.9 F 55 L 20 142/92 H 98 05/22/17 10:32 05/22/17 10:32 05/22/17 10:32 05/22/17 10:32 05/22/17 10:32
[2017-05-22] MEDS ORDERED: HYDROMORPHONE HCL INJ/PF 2 MG/ML AMPULE IV ONE (11:50)
[2017-05-22] MEDS ORDERED: CIPROFLOXACIN 400 MG/D5W RTU 200 ML IV SCH (12:00)
[2017-05-22] MEDS: NORMAL SALINE 1000 ML 1,000 ML IV PRN ×2 (13:18→14:13)
[2017-05-22 13:34] LABS: ABSOLUTE EOSINOPHILS # (AUTO) 0.1 10^3/uL (0.0-0.6); ABSOLUTE LYMPHOCYTES (AUTO) 1.3 10^3/uL (0.5-4.7); ABSOLUTE MONOCYTES (AUTO) 0.4 10^3/uL (0.1-1.4); ABSOLUTE NEUT (AUTO) 2.9 10^3/uL (1.7-8.2); BASOPHILS % (AUTO) 0.7 % (0-2); EOSINOPHILS % (AUTO) 1.6 % (0-6); HEMATOCRIT 36.2 % (36.0-47.0); HEMOGLOBIN 12.7 g/dL (12.0-15.5); HGB HCT DIFFERENCE 1.9; LYMPHOCYTES % (AUTO) 27.5 % (13-45); MEAN CORPUSCULAR HEMOGLOBIN 32.1 pg (27.0-33.4); MEAN CORPUSCULAR VOLUME 92 fl (80-97); MONOCYTES % (AUTO) 8.7 % (3-13); RED BLOOD COUNT 3.94 10^6/uL (3.72-5.28); RED CELL DISTRIBUTION WIDTH 12.3 % (11.5-14.0); SEGMENTED NEUTROPHILS % (AUTO) 61.5 % (42-78); WHITE BLOOD COUNT 4.7 10^3/uL (4.0-10.5)
[2017-05-22 13:54] LABS: APPEARANCE,URINE CLEAR; BILIRUBIN,URINE NEGATIVE (NEGATIVE); GLUCOSE, URINE NEGATIVE (NEGATIVE); KETONES,URINE NEGATIVE (NEGATIVE); LEUKOCYTE ESTERASE,URINE SMALL (NEGATIVE); NITRITE,URINE NEGATIVE (NEGATIVE); PROTEIN,URINE NEGATIVE (NEGATIVE); URINE SPECIFIC GRAVITY 1.012; UROBILINOGEN,URINE NEGATIVE mg/dL (<2.0)
[2017-05-22 14:13] LABS: ALANINE AMINOTRANSFERASE 36 U/L (9-52); ALKALINE PHOSPHATASE 59 U/L (38-126); ANION GAP 12 (5-19); ASPARTATE AMINO TRANSFERASE 36 U/L (14-36); BILIRUBIN,DIRECT 0.3 mg/dL (0.0-0.4); BLOOD UREA NITROGEN 8 mg/dL (7-20); CARBON DIOXIDE 24 mmol/L (22-30); CHLORIDE 105 mmol/L (98-107); CREATININE RESULT 0.76 mg/dL (0.52-1.25); GLUCOSE 83 mg/dL (75-110); POTASSIUM 3.7 mmol/L (3.6-5.0); SODIUM 140.7 mmol/L (137-145); TOTAL PROTEIN 7.4 g/dL (6.3-8.2)
--- NOTE | 2017-05-22 14:47 | ER Document Report ---
ED General - General Chief Complaint: Vaginal Bleeding Stated Complaint: ABDOMINAL PAIN Time Seen by Provider: 05/22/17 10:57 Mode of Arrival: Ambulatory Information source: Patient Notes: 52-year-old female presents with complaints of abdominal pain vaginal bleeding. Patient denies any fevers or chills admits to nausea vomiting. Patient does receive imipenem at 6 PM daily. Patient did note some vaginal spotting and was seen by surgical list who is concerned about a fistula formation TRAVEL OUTSIDE OF THE [place] IN LAST 30 DAYS: No - HPI Onset: Last week Onset/Duration: Persistent Quality of pain: Achy, Burning Severity: Mild Pain Level: 1 Associated symptoms: Diarrhea, Nausea, Vomiting Exacerbated by: Denies Relieved by: Denies Similar symptoms previously: Yes Recently seen / treated by doctor: Yes - Related Data Allergies/Adverse Reactions: No Known Allergies Allergy (Verified 05/22/17 14:19) Past Medical History - Social History Smoking Status: Never Smoker Cigarette use (# per day): No Chew tobacco use (# tins/day): No Smoking Education Provided: No Drug Abuse: None Family History: Reviewed & Not Pertinent Patient has suicidal ideation: No Patient has homicidal ideation: No - Past Medical History Cardiac Medical History: Reports: Hx Hypertension, Hx Heart Murmur Denies: Hx Atrial Fibrillation, Hx Congestive Heart Failure, Hx Coronary Artery Disease, Hx Heart Attack, Hx Hypercholesterolemia, Hx Peripheral Vascular Disease, Hx Pulmonary Embolism Pulmonary Medical History: Denies: Hx Asthma, Hx Bronchitis, Hx COPD, Hx Pneumonia, Hx Respiratory Failure, Hx Sleep Apnea, Hx Tuberculosis Neurological Medical History: Denies: Hx Cerebrovascular Accident, Hx Seizures Renal/ Medical History: Denies: Hx Ovarian Cysts, Hx Peritoneal Dialysis, Hx Pelvic Inflammatory Disease Malignancy Medical History: Denies: Hx Breast Cancer, Hx Lung Cancer, Hx Ovarian Cancer GI Medical History: Reports: Hx Gastroesophageal Reflux Disease. Denies: Hx Crohn's Disease, Hx Hiatal Hernia, Hx Irritable Bowel, Hx Liver Failure, Hx Ulcer Musculoskeltal Medical History: Denies Hx Arthritis, Denies Hx Fibromyalgia, Denies Hx Multiple Sclerosis, Denies Hx Muscular Dystrophy Psychiatric Medical History: Denies: Hx Dementia Traumatic Medical History: Denies: Hx Fractures Past Surgical History: Reports: Hx Appendectomy, Hx Hysterectomy. Denies: Hx Bowel Surgery, Hx Section, Hx Cholecystectomy, Hx Colostomy, Hx Coronary Artery Bypass Graft, Hx Gastric Bypass Surgery, Hx Herniorrhaphy, Hx Mastectomy, Hx Pacemaker, Hx Tonsillectomy, Hx Tubal Ligation - Immunizations Hx Diphtheria, Pertussis, Tetanus Vaccination: No Review of Systems - Review of Systems Notes: REVIEW OF SYSTEMS: CONSTITUTIONAL : Denies fever, chills, or sweats. Denies recent illness. EENT: Denies eye, ear, throat, or mouth pain or symptoms. Denies nasal or sinus congestion or discharge. Denies throat, tongue, or mouth swelling or difficulty swallowing. CARDIOVASCULAR: Denies chest pain. Denies palpitations or racing or irregular heart beat. Denies ankle edema. RESPIRATORY: Denies cough, cold, or chest congestion. Denies shortness of breath, difficulty breathing, or wheezing. GASTROINTESTINAL: Admits to abdominal pain GENITOURINARY: Denies difficulty urinating, painful urination, burning, frequency, blood in urine, or discharge. FEMALE GENITOURINARY: Admits to vaginal bleeding MUSCULOSKELETAL: Denies back or neck pain or stiffness. Denies joint pain or swelling. SKIN: Denies rash, lesions or sores. HEMATOLOGIC : Denies easy bruising or bleeding. LYMPHATIC: Denies swollen, enlarged glands. NEUROLOGICAL: Denies confusion or altered mental status. Denies passing out or loss of consciousness. Denies dizziness or lightheadedness. Denies headache. Denies weakness or paralysis or loss of use of either side. Denies problems with gait or speech. Denies sensory loss, numbness, or tingling. Denies seizures. PSYCHIATRIC: Denies anxiety or stress. Denies depression, suicidal ideation, or homicidal ideation. ALL OTHER SYSTEMS REVIEWED AND NEGATIVE. PHYSICAL EXAMINATION: GENERAL: Well-appearing, well-nourished and in no acute distress. HEAD: Atraumatic, normocephalic. EYES: Pupils equal round and reactive to light, extraocular movements intact, conjunctiva are normal. ENT: Nares patent, oropharynx clear without exudates. Moist mucous membranes. NECK: Normal range of motion, supple without lymphadenopathy LUNGS: Breath sounds clear to auscultation bilaterally and equal. No wheezes rales or rhonchi. HEART: Regular rate and rhythm without murmurs ABDOMEN: Soft, nontender, nondistended abdomen. No guarding, no rebound. No masses appreciated. Female : deferred Musculoskeletal: Normal range of motion, no pitting or edema. No cyanosis. NEUROLOGICAL: Cranial nerves grossly intact. Normal speech, normal gait. Normal sensory, motor exams PSYCH: Normal mood, normal affect. SKIN: Warm, Dry, normal turgor, no rashes or lesions noted. Dictation was performed using [employer] voice recognition software Physical Exam - Vital signs Vitals: Temp Pulse Resp BP Pulse Ox 97.9 F 55 L 20 142/92 H 98 05/22/17 10:32 05/22/17 10:32 05/22/17 10:32 05/22/17 10:32 05/22/17 10:32 Course - Re-evaluation Re-evalutation: 05/22/17 15:03 Patient's lab work notes no significant abnormality CT abdomen pelvis with oral and IV contrast is pending Dictation was performed using [employer] recognition software CT lab work noted no significant abnormality, chronic diverticulitis in the sigmoid is noted. Patient is afebrile and otherwise looks extremely well. Dr. Sheldon evaluated the patient here does request MANUFACTURING QUALITY INSPECTOR involvement. Dr. Le was paged and will evaluate the patient in the emergency department - Vital Signs Vital signs: Temp Pulse Resp BP Pulse Ox 97.9 F 55 L 20 142/92 H 98 05/22/17 10:32 05/22/17 10:32 05/22/17 10:32 05/22/17 10:32 05/22/17 10:32 - Laboratory Result Diagrams: 05/22/17 13:00 05/22/17 13:00 Laboratory results interpreted by me: 05/22/17 13:00 Ur Leukocyte Esterase SMALL H - Diagnostic Test Radiology reviewed: Image reviewed, Reports reviewed - Chronic sigmoid diverticulitis Discharge - Discharge Clinical Impression: Diverticulitis of sigmoid colon Condition: Stable
--- NOTE | 2017-05-22 15:31 | RADIOLOGY REPORT (SQ) ---
EXAM DESCRIPTION: CT ABD/PELVIS WITH IV ORAL COMPLETED DATE/TIME: 05/22/2017 2:51 pm REASON FOR STUDY: abd pain , hx diverticulitis COMPARISON: 05/08/2017 None. TECHNIQUE: CT scan of the abdomen and pelvis performed using helical scanning technique with dynamic intravenous contrast injection. Oral contrast. Images reviewed with lung, soft tissue, and bone win dows. Reconstructed coronal and sagittal MPR images reviewed. Delayed images for evaluation of the ur inary system also acquired. All images stored on PACS. All CT scanners at this facility use dose modulation, iterative reconstruction, and/or weight based d osing when appropriate to reduce radiation dose to as low as reasonably achievable (ALARA). [facility]: Dose Right [facility]: CareDose [facility]: Dose Right [facility]: Teradose 4D [facility]: [employer] CONTRAST TYPE AND DOSE: contrast/concentration: Isovue 370.00 mg/ml; Total Contrast Delivered: 76.0 ml; Total Saline Delivered: 67.0 ml RENAL FUNCTION: Creatinine 0.8 BUN 8 RADIATION DOSE: Up-to-date CT equipment and radiation dose reduction techniques were employed. CTDIv ol: 7.7 - 10.9 mGy. DLP: 936 mGy-cm.. LIMITATIONS: None. FINDINGS: LOWER CHEST: No significant findings. No nodules or infiltrates. LIVER: A couple of hepatic cysts are present. SPLEEN: Normal size. No focal lesions. PANCREAS: No masses. No significant calcifications. No adjacent inflammation or peripancreatic fluid collections. Pancreatic duct not dilated. GALLBLADDER: No identified stones by CT criteria. No inflammatory changes to suggest cholecystitis. ADRENAL GLANDS: No significant masses or asymmetry. RIGHT KIDNEY AND URETER: No solid masses. No significant calcifications. No hydronephrosis or hyd roureter. LEFT KIDNEY AND URETER: No solid masses. No significant calcifications. No hydronephrosis or hydr oureter. AORTA AND VESSELS: No aneurysm. No dissection. Renal arteries, SMA, celiac without stenosis. RETROPERITONEUM: No retroperitoneal adenopathy, hemorrhage or masses. BOWEL AND PERITONEAL CAVITY: There is once again seen thickening of a segment of the sigmoid colon wi th inflammatory stranding in the fat around the sigmoid. No definable or drainable fluid collection is appreciated. APPENDIX: Surgically absent. PELVIS: The urinary bladder is normal. The uterus is absent. There is no adnexal mass or fluid maria t ection. ABDOMINAL WALL: No masses. No hernias. BONES: Degenerative disc changes are present at L5-S1. OTHER: No other significant finding. IMPRESSION: Persistent sigmoid diverticulitis with no evidence of an abscess. Findings as described . TECHNICAL DOCUMENTATION: JOB ID: [id number] Quality ID # [id number]: Final reports with documentation of one or more dose reduction techniques (e.g., Au tomated exposure control, adjustment of the mA and/or kV according to patient size, use of iterative reconstruction technique) 2010 [employer]- All Rights Reserved
[2017-05-22] MEDS ORDERED: IMIPENEM/CILASTATIN SODIUM INJ 500 MG VIAL IV ONE (16:42)
[2017-05-22] MEDS ORDERED: ERTAPENEM SODIUM INJ 1 GM VIAL IV ONE (17:00)
[2017-05-22 17:25] VITALS: BP 149/98
--- NOTE | 2017-05-22 17:58 | CONSULTATION REPORT E ---
Consultation Report NAME: CELENA STANTON : 1965 AGE: 52Y DATE: 05/22/2017 TO: WIL SHARMA M.D. FROM: AMBROSE NÚÑEZ M.D. Requesting Physician REASON FOR CONSULTATION: Patient with known history of diverticulitis on IV antibiotics at home, noted vaginal bleeding yesterday. HISTORY OF PRESENT ILLNESS: This is a 52-year-old female who has been treated with medical therapy for acute sigmoid diverticulitis. She had previous episodes of diverticulitis in the past, but this appears to be the worst. She was recently admitted to the hospital and given IV antibiotics with improvement in all of her symptomatology and white count and continued on IV home antibiotic therapy. She [facility] and Dr. Delarosa has tentatively scheduled her for surgery next Saturday. However, because of the episode of vaginal bleeding, she was sent to the emergency room for workup. In the ER, she had a CAT scan of the abdomen which just showed sigmoid diverticulitis with no abscess. The patient was then seen by WATCH ENGINEER attending, Cheyenne Lincoln MD who did a pelvic exam which was negative for any bleeding and also negative for yeast formation. The patient denies any pains or abdominal tenderness at this time. Her white count is normal and afebrile. ALLERGIES: None known. PAST MEDICAL HISTORY: 1. Cardiac medical history: Reports hypertension and heart murmur. 2. Pulmonary medical history: Denies asthma or bronchitis. 3. Neurologic history: Denies CVA or seizures. 4. Renal/ history: No ovarian cyst or pelvic inflammatory disease. 5. Malignancy history: No breast cancer or ovarian cancer. 6. GI medical history: Reports gastroesophageal reflux disease. 7. Musculoskeletal history: Denies arthritis. 8. Psychiatric history: Denies any dementia. PAST SURGICAL HISTORY: 1. Appendectomy. 2. Hysterectomy. REVIEW OF SYSTEMS: CONSTITUTIONAL: Denies fever, chills or sweats. EENT: Denies eye, ear, throat or mouth pain or symptoms. CARDIOVASCULAR: Denies chest pains or palpitations. RESPIRATORY: Denies cough or chest congestion or shortness of breath. GASTROINTESTINAL: History of abdominal pains. GENITOURINARY: Denies dysuria or blood in the urine. FEMALE GENITOURINARY: Admits to having vaginal bleeding yesterday. MUSCULOSKELETAL: Denies back or neck pains or stiffness. SKIN: Denies rash or skin lesions. HEMATOLOGIC: Denies easy bruisability. LYMPHATIC: Denies swollen or enlarged glands. NEUROLOGICAL: Denies confusion or lightheadedness. PSYCHIATRIC: Denies anxiety or stress. All other systems reviewed and are negative. PHYSICAL EXAMINATION: GENERAL: A 52-year-old female, alert and oriented in no apparent acute distress. HEAD: Atraumatic and normocephalic. EYES: Pupils equal, round and reactive to light. Conjunctivae are normal. ENT: Nares patent. Oropharynx clear without exudates. NECK: Normal range of motion, supple without lymphadenopathy. LUNGS: Breath sounds are clear to auscultation bilaterally and equal. HEART: Regular rate and rhythm without murmurs. ABDOMEN: Soft, nontender and nondistended. No guarding and no rebound. No masses palpated. FEMALE GENITOURINARY: Deferred to WATCH ENGINEER. MUSCULOSKELETAL: Normal range of motion. No cyanosis. NEUROLOGICAL: Cranial nerves grossly intact. Normal speech and gait. PSYCHIATRIC: Normal mood and normal affect. SKIN: Warm and dry. Normal turgor. No rashes. VITAL SIGNS: Temperature 97.9 degrees Fahrenheit, pulse of 55 per minute, respirations 20 per minute, blood pressure 142/92 and pulse oximetry of 98% on room air. IMPRESSION: Sigmoid diverticulitis with no evidence of abscess nor obvious fistula. PLAN: The patient evaluated by WATCH ENGINEER attending, Cheyenne Lincoln MD who did a pelvic exam and found no blood in the vagina area. No evidence of tenderness either. She did a test for yeast and was negative. The plan is to send the patient home and continue with IV InVance and finish the course this Saturday. If she has any other episode of bleeding, then to come back and WATCH ENGINEER attending will then do a repeat pelvic exam. Otherwise if everything is stable, the patient is to undergo surgery for the diverticulitis next Saturday to be done by Dr. Delarosa. Dr Lincoln and i explained this to the patient. DICTATING PHYSICIAN: WIL SHARMA M.D. [id number] PHY#: [id number] ID: [id number] JOB#: [id number] ACCT: [id number] cc:WIL SHAMRA M.D. > MTDD
== END 2017-05-22 17:13 | disposition home or self-care (01) ==
LOC: ER 10:27
DX: K57.32 Diverticulitis of large intestine without perforation or abscess without bleeding (principal); N93.9 Abnormal uterine and vaginal bleeding, unspecified; R10.9 Unspecified abdominal pain; R11.2 Nausea with vomiting, unspecified; R19.7 Diarrhea, unspecified; I10 Essential (primary) hypertension; Z90.49 Acquired absence of other specified parts of digestive tract; Z90.710 Acquired absence of both cervix and uterus
CPT/HCPCS: 99284; 36415; 87040; 87210; 85025; 80053; 81001; 74177; J7030; J1642

== ENCOUNTER 2017-05-28 07:41 | Inpatient (IN) | payer BC ==
[2017-05-21 10:42] LABS: HEMATOCRIT 40.5 % (36.0-47.0); HEMOGLOBIN 13.9 g/dL (12.0-15.5); HGB HCT DIFFERENCE 1.2; MEAN CORPUSCULAR HEMOGLOBIN 32.2 pg (27.0-33.4); MEAN CORPUSCULAR HGB CONC 34.4 g/dL (32.0-36.0); MEAN CORPUSCULAR VOLUME 94 fl (80-97); RED BLOOD COUNT 4.32 10^6/uL (3.72-5.28); RED CELL DISTRIBUTION WIDTH 12.4 % (11.5-14.0); WHITE BLOOD COUNT 7.3 10^3/uL (4.0-10.5)
[2017-05-21 11:17] LABS: ANION GAP 13 (5-19); BLOOD UREA NITROGEN 10 mg/dL (7-20); CALCIUM 9.4 mg/dL (8.4-10.2); CARBON DIOXIDE 28 mmol/L (22-30); CHLORIDE 103 mmol/L (98-107); CREATININE RESULT 0.86 mg/dL (0.52-1.25); GLUCOSE 92 mg/dL (75-110); POTASSIUM 4.7 mmol/L (3.6-5.0)
--- NOTE | 2017-05-21 18:21 | EKG REPORT ---
SEVERITY:- ABNORMAL ECG - SINUS RHYTHM CONSIDER LEFT VENTRICULAR HYPERTROPHY : Confirmed by: Antonino Hand MD 21-May-2017 18:20:36
[~2017-05-28 07:41] MED LIST: BUPIVACAINE HCL 0.25 % INJ/PF (2.5 MG/1 ML) 30 ML VIAL ONE; ERTAPENEM SODIUM 1 GM in NORMAL SALINE 50 ML IV PRN; LACTATED RINGERS 1000 ML IV PRN; LIDOCAINE 0.5% INJ-PF (5 MG/ML) 50 ML SDV SUBCUT PRN
[2017-05-28] MEDS ORDERED: DEXAMETHASONE SOD PHOSPHATE INJ 4 MG/1 ML VIAL ONE (09:15)
[2017-05-28] MEDS ORDERED: ONDANSETRON HCL INJ/PF 4 MG/2 ML SDV ONE (09:15)
[2017-05-28] MEDS ORDERED: GLYCOPYRROLATE INJ 0.4 MG/2 ML VIAL ONE (09:15)
[2017-05-28] MEDS ORDERED: SUCCINYLCHOLINE CHLORIDE INJ 200 MG/10 ML VIAL ONE (09:15)
[2017-05-28] MEDS ORDERED: VECURONIUM BROMIDE INJ 10 MG VIAL IV ONE (09:15)
[2017-05-28] MEDS ORDERED: FENTANYL CITRATE INJ/PF 250 MCG/5 ML AMPULE ONE (11:04)
[2017-05-28] MEDS ORDERED: EPHEDRINE SULFATE INJ 50 MG/1 ML AMPULE ONE (11:04)
[2017-05-28] MEDS ORDERED: MIDAZOLAM 2 MG/2 ML INJ ONE ×2 (11:04→15:57)
[2017-05-28] MEDS ORDERED: ACETAMINOPHEN 0 ML IV ONE (11:05)
[2017-05-28] MEDS ORDERED: MORPHINE SULFATE 10 MG/ML INJ ONE (11:05)
[2017-05-28] MEDS ORDERED: PROPOFOL INJ 200 MG/20 ML VIAL IV ONE (11:05)
[2017-05-28] MEDS ORDERED: FAMOTIDINE INJ/PF 20 MG/2 ML SDV IV ONE ×2 (11:21→11:22)
[2017-05-28] MEDS ORDERED: DIPHENHYDRAMINE HCL 50 MG/ML VIAL IV PRN (13:16)
[2017-05-28] MEDS ORDERED: MEPERIDINE HCL/PF INJ 25 MG/1 ML DISP.SYRIN IV PRN (13:16)
[2017-05-28] MEDS ORDERED: PROMETHAZINE HCL INJ 25 MG/1 ML VIAL IV PRN (13:16)
[2017-05-28] MEDS ORDERED: FENTANYL CITRATE INJ/PF 100 MCG/2 ML AMPUL IV PRN ×3 (13:16)
[2017-05-28] MEDS ORDERED: ONDANSETRON HCL INJ/PF 4 MG/2 ML SDV IV PRN ×2 (13:16→14:45)
[2017-05-28] MEDS ORDERED: MORPHINE SULFATE 10 MG/ML INJ IV PRN ×3 (13:16→18:14)
[2017-05-28] MEDS ORDERED: DEXTROSE 40% GEL 15 GM TUBE PO PRN ×2 (14:45)
[2017-05-28] MEDS ORDERED: GLUCAGON,HUMAN RECOMB 1 MG INJ SUBCUT PRN (14:45)
[2017-05-28] MEDS ORDERED: DEXTROSE 50%-WATER 25 GM/50 ML DISP.SYRIN IV PRN ×2 (14:45)
[2017-05-28] MEDS ORDERED: PHARMACY COMMUNICATION ORDER MC NR (15:00)
--- NOTE | 2017-05-28 15:09 | Operative Report ---
Operative Report DATE OF SURGERY: 05/28/17 PREOPERATIVE DIAGNOSIS: Sigmoid diverticulitis POSTOPERATIVE DIAGNOSIS: Sigmoid diverticulitis OPERATION: Sigmoidectomy with colorectal anastomosis SURGEON: MYRTLE FOWLER ANESTHESIA: GA TISSUE REMOVED OR ALTERED: Sigmoid colon COMPLICATIONS: None ESTIMATED BLOOD LOSS: 200 cc INTRAOPERATIVE FINDINGS: Markedly inflamed distal sigmoid colon with the sigmoid colon plastered to the vagina. PROCEDURE: Informed consent was obtained. Patient was brought to the operating room and placed on the operating room table in the supine position. After satisfactory induction of general anesthesia was placed in a low lithotomy position and her abdomen and perineum were prepped and draped in usual sterile. A lower midline incision was made dissection carried down through the fascia and the peritoneal cavity was entered without difficulty. A wound protractor was used during the case. Exploratory laparotomy was performed first. The liver felt smooth with no masses. The anterior abdominal wall felt smooth with no masses. The stomach appeared normal. NG tube position was confirmed by palpation. The small bowel appeared normal. The colon felt normal until I got to the sigmoid colon where there was marked sigmoid colon thickening with the distal end folded over and plastered to the pelvis. Bookwalter retractor was used during the case. The sigmoid colon was mobilized and the sigmoid colon was divided at its junction to the descending colon. Although there were diverticuli of the descending colon the colon wall was soft and pliable. The region where the colon was divided with the ABNER stapling device felt soft and pliable. The mesentery of the sigmoid colon to be taken was taken using a LigaSure device. The inferior mesenteric artery was taken by clamping dividing and tying. Distally the sigmoid colon was markedly inflamed and it was plastered to the pelvis. dissection was started proximally and carried out distally. The left ureter was clearly identified and protected during the dissection. Anteriorly there was no plane between the folded plastered sigmoid colon and the pelvis. Posteriorly I found the clean avascular plane and laterally I found a clean plane and finally I went through the anterior area with combination of sharp dissection and electrocautery going through extremely dense phlegmon like tissue. It became obvious that the sigmoid colon was plastered to the vagina. This point of dense concrete-like adhesion was divided. At no point did I entered the vagina. At no point did I entered the sigmoid colon. Once I got below this point the rectum felt soft and pliable. And the rectum was divided using a contour stapling device. The mesorectum was divided with the LigaSure device. The left colon was mobilized. The splenic flexure however did not need to be immobilized. The left colon end reached down to the rectal stump easily without any tension. Hemostasis appeared excellent. The specimen was examined with the pathologist and it was consistent with diverticulitis. No evidence of malignancy. Head of the 33 EEA stapling device was attached to the colon end using a pursestring device. A rectal dilator was initially placed into the vagina and in examining closely the pelvis there was no evidence of vaginal injury. The rectal dilator was then placed into the rectum and the anus was sequentially dilated. A end-to-end anastomosis was created between the descending colon end and the rectal stump using the 33 EEA stapling device. The anastomosis came together well without any tension. The anastomosis was tested by insufflating air of the proctoscope. The anastomosis was airtight. Both of the doughnuts were intact. Sponge needle and instrument counts were all correct. A Peterson-Arellano drain was placed into the patient's pelvis and brought out through separate stab incision in the patient's right lower quadrant and sutured in place. Omentum was brought down and placed between the rectum and the vagina. Hemostasis appeared good. Fascia was closed with running PDS suture. Skin was closed with sergei. Marcaine was injected. Patient tolerated procedure well with no apparent complications and was taken to the recovery area in stable condition.
[2017-05-28] MEDS: FENTANYL CITRATE INJ/PF 100 MCG/2 ML AMPUL ONE ×2 (15:16→15:24)
[2017-05-28] MEDS: MORPHINE SULFATE 10 MG/ML INJ ONE ×2 (15:30→15:40)
[2017-05-28] MEDS ORDERED: ACETAMINOPHEN 100 ML IV ONE (15:53)
[2017-05-28] MEDS: NORMAL SALINE 1000 ML 1,000 ML IV PRN ×2 (17:38→21:38)
[2017-05-28] MEDS ORDERED: NORMAL SALINE 10 ML SDV (AFTER EACH USE) IV PRN (18:15)
--- NOTE | 2017-05-28 21:04 | PDOC PROGRESS REPORT ---
Subjective Progress Note for:: 05/28/17 Subjective:: Intermittent waves of abdominal pain. Otherwise feels okay. Physical Exam Vital Signs: Temp Pulse Resp BP Pulse Ox 97.5 F 56 L 17 120/67 98 05/28/17 17:58 05/28/17 17:58 05/28/17 17:58 05/28/17 17:58 05/28/17 17:58 Intake & Output 05/27/17 05/28/17 05/29/17 06:59 06:59 06:59 Intake Total 3800 Output Total 1460 Balance 2340 General appearance: PRESENT: no acute distress, cooperative Respiratory exam: PRESENT: clear to auscultation reji Cardiovascular exam: PRESENT: RRR GI/Abdominal exam: PRESENT: other - Soft, nondistended, appropriate tenderness. Drain output is blood-tinged. Extremities exam: PRESENT: other - No swelling Results Laboratory Results: 05/21/17 09:32 05/28/17 08:25 05/28/17 08:25 Potassium 3.7 Assessment & Plan - Diagnosis (1) Diverticulitis of sigmoid colon Is this a current diagnosis for this admission?: YesPlan: Status post low anterior resection. Patient looks reasonably well. Will try Toradol for pain control. Await bowel function
[2017-05-28] MEDS ORDERED: KETOROLAC TROMETHAMINE INJ/PF 30 MG/1 ML SDV IV PRN (21:07)
[2017-05-28] MEDS: FAMOTIDINE INJ/PF 20 MG/2 ML SDV IV SCH (21:37)
[2017-05-28] MEDS: NORMAL SALINE 10 ML SDV (SCHEDULED) IV SCH (21:37)
[2017-05-29] MEDS: MORPHINE SULFATE 10 MG/ML INJ IV PRN ×7 (00:26→22:14)
[2017-05-29 05:39] LABS: HEMATOCRIT 31.2 % (36.0-47.0); HEMOGLOBIN 10.9 g/dL (12.0-15.5); HGB HCT DIFFERENCE 1.5; MEAN CORPUSCULAR HEMOGLOBIN 32.1 pg (27.0-33.4); MEAN CORPUSCULAR VOLUME 92 fl (80-97); RED CELL DISTRIBUTION WIDTH 12.4 % (11.5-14.0)
[2017-05-29 06:00] LABS: ANION GAP 9 (5-19); BLOOD UREA NITROGEN 7 mg/dL (7-20); CARBON DIOXIDE 23 mmol/L (22-30); CHLORIDE 108 mmol/L (98-107); CREATININE RESULT 0.63 mg/dL (0.52-1.25); GLUCOSE 99 mg/dL (75-110); POTASSIUM 4.2 mmol/L (3.6-5.0); SODIUM 139.5 mmol/L (137-145)
[2017-05-29] MEDS: NORMAL SALINE 1000 ML 1,000 ML IV PRN ×3 (07:26→22:20)
[2017-05-29] MEDS ORDERED: MORPHINE SULFATE 10 MG/ML INJ ONE ×2 (07:55→10:33)
[2017-05-29] MEDS ORDERED: MORPHINE SULFATE 10 MG/ML INJ IV PRN (08:06)
[2017-05-29] MEDS: FAMOTIDINE INJ/PF 20 MG/2 ML SDV IV SCH ×2 (10:03→22:13)
[2017-05-29] MEDS: NORMAL SALINE 10 ML SDV (SCHEDULED) IV SCH ×2 (10:03→22:13)
[2017-05-29] MEDS: ENOXAPARIN SODIUM INJ 40 MG/0.4 ML DISP.SYRIN SUBCUT SCH (10:04)
[2017-05-29] MEDS: NEBIVOLOL HCL 5 MG TABLET NG SCH (10:04)
--- NOTE | 2017-05-29 10:41 | PDOC PROGRESS REPORT ---
Subjective Progress Note for:: 05/29/17 Subjective:: Intermittent waves of abdominal pain. Otherwise feels okay. ship's engineer recommended no toradol due to renal function issues in past Physical Exam Vital Signs: Temp Pulse Resp BP Pulse Ox 98.1 F 56 L 16 122/72 96 05/29/17 08:26 05/29/17 08:26 05/29/17 08:26 05/29/17 08:26 05/29/17 08:29 Intake & Output 05/28/17 05/29/17 05/30/17 06:59 06:59 06:59 Intake Total 3800 1953 Output Total 2060 Balance 1740 1953 General appearance: PRESENT: no acute distress, cooperative Respiratory exam: PRESENT: clear to auscultation reji Cardiovascular exam: PRESENT: RRR GI/Abdominal exam: PRESENT: other - soft, nd, appropriate tenderness. drain output serosanguinous. Extremities exam: PRESENT: other - no swelling Results Laboratory Results: 05/29/17 05:25 05/29/17 05:25 05/29/17 05/29/17 05:25 05:25 WBC 11.0 H RBC 3.40 L Hgb 10.9 L Hct 31.2 L MCV 92 MCH 32.1 MCHC 35.0 RDW 12.4 Plt Count 226 Sodium 139.5 Potassium 4.2 Chloride 108 H Carbon Dioxide 23 Anion Gap 9 BUN 7 Creatinine 0.63 Est GFR ( Amer) > 60 Est GFR (Non-Af Amer) > 60 Glucose 99 Calcium 8.0 L Assessment & Plan - Diagnosis (1) Diverticulitis of sigmoid colon Is this a current diagnosis for this admission?: YesPlan: Status post low anterior resection. Patient looks reasonably well. ambulate. Await bowel function. decrease hct likely due to hemodilution and operative blood loss but will keep eye on.
[2017-05-30] MEDS: MORPHINE SULFATE 10 MG/ML INJ IV PRN ×6 (02:47→21:44)
[2017-05-30] MEDS: NORMAL SALINE 1000 ML 1,000 ML IV PRN ×2 (05:56→17:36)
[2017-05-30 06:58] LABS: ANION GAP 8 (5-19); BLOOD UREA NITROGEN 7 mg/dL (7-20); CALCIUM 7.6 mg/dL (8.4-10.2); CARBON DIOXIDE 24 mmol/L (22-30); CHLORIDE 108 mmol/L (98-107); CREATININE RESULT 0.63 mg/dL (0.52-1.25); GLUCOSE 69 mg/dL (75-110); HEMATOCRIT 31.1 % (36.0-47.0); HEMOGLOBIN 10.7 g/dL (12.0-15.5); MEAN CORPUSCULAR HEMOGLOBIN 32.4 pg (27.0-33.4); MEAN CORPUSCULAR HGB CONC 34.4 g/dL (32.0-36.0); MEAN CORPUSCULAR VOLUME 94 fl (80-97); POTASSIUM 3.7 mmol/L (3.6-5.0); RED BLOOD COUNT 3.31 10^6/uL (3.72-5.28); RED CELL DISTRIBUTION WIDTH 12.4 % (11.5-14.0); SODIUM 140.1 mmol/L (137-145); WHITE BLOOD COUNT 7.3 10^3/uL (4.0-10.5)
--- NOTE | 2017-05-30 09:03 | PDOC PROGRESS REPORT ---
Subjective Progress Note for:: 05/30/17 Subjective:: Pain under better control. No complaints. Physical Exam Vital Signs: Temp Pulse Resp BP Pulse Ox 98.2 F 57 L 16 120/74 98 05/29/17 23:33 05/29/17 23:33 05/29/17 23:33 05/29/17 23:33 05/29/17 23:33 Intake & Output 05/29/17 05/30/17 05/31/17 06:59 06:59 06:59 Intake Total 3800 4299 Output Total 2060 2075 Balance 1740 2224 Weight 80.5 kg General appearance: PRESENT: no acute distress, cooperative Respiratory exam: PRESENT: clear to auscultation reji Cardiovascular exam: PRESENT: RRR GI/Abdominal exam: PRESENT: other - Soft, nondistended, mild abdominal tenderness. Drain output is serosanguineous. Extremities exam: PRESENT: other - No swelling Results Laboratory Results: 05/30/17 05:45 05/30/17 05:45 05/30/17 05/30/17 05:45 05:45 WBC 7.3 RBC 3.31 L Hgb 10.7 L Hct 31.1 L MCV 94 MCH 32.4 MCHC 34.4 RDW 12.4 Plt Count 208 Sodium 140.1 Potassium 3.7 Chloride 108 H Carbon Dioxide 24 Anion Gap 8 BUN 7 Creatinine 0.63 Est GFR ( Amer) > 60 Est GFR (Non-Af Amer) > 60 Glucose 69 L Calcium 7.6 L Assessment & Plan - Diagnosis (1) Diverticulitis of sigmoid colon Is this a current diagnosis for this admission?: YesPlan: Status post low anterior resection. Patient looks reasonably well. ambulate. Await bowel function. AMY Kent.
[2017-05-30] MEDS: ENOXAPARIN SODIUM INJ 40 MG/0.4 ML DISP.SYRIN SUBCUT SCH (09:44)
[2017-05-30] MEDS: FAMOTIDINE INJ/PF 20 MG/2 ML SDV IV SCH ×2 (09:45→21:43)
[2017-05-30] MEDS: NORMAL SALINE 10 ML SDV (SCHEDULED) IV SCH ×2 (09:46→21:44)
[2017-05-30] MEDS: NEBIVOLOL HCL 5 MG TABLET NG SCH (09:46)
[2017-05-30] MEDS ORDERED: ONDANSETRON HCL INJ/PF 4 MG/2 ML SDV IV PRN (14:16)
[2017-05-31] MEDS: NORMAL SALINE 1000 ML 1,000 ML IV PRN (02:34)
[2017-05-31] MEDS: MORPHINE SULFATE 10 MG/ML INJ IV PRN ×4 (04:02→23:33)
[2017-05-31] MEDS ORDERED: DEXTROSE 5%-1/2 NORMAL SALINE 1,000 ML with POTASSIUM CHLORIDE 20 MEQ IV PRN ×2 (08:23)
--- NOTE | 2017-05-31 08:27 | PDOC PROGRESS REPORT ---
Subjective Progress Note for:: 05/31/17 Subjective:: Feels well. No complaints. Physical Exam Vital Signs: Temp Pulse Resp BP Pulse Ox 97.7 F 51 L 17 144/81 H 98 05/31/17 01:00 05/31/17 01:00 05/31/17 01:00 05/31/17 01:00 05/31/17 01:00 Intake & Output 05/30/17 05/31/17 06/01/17 06:59 06:59 06:59 Intake Total 4299 3826 Output Total 2075 2890 Balance 2224 936 Weight 80.5 kg 78 kg General appearance: PRESENT: no acute distress, cooperative Respiratory exam: PRESENT: clear to auscultation reji Cardiovascular exam: PRESENT: RRR GI/Abdominal exam: PRESENT: other - Soft, nondistended, minimal tenderness. Wounds clean dry and intact. Drain output is serosanguineous. Diminished bowel sounds Extremities exam: PRESENT: other - no swelling Results Laboratory Results: 05/30/17 05:45 05/30/17 05:45 Assessment & Plan - Diagnosis (1) Diverticulitis of sigmoid colon Is this a current diagnosis for this admission?: YesPlan: Status post low anterior resection. Patient looks well. Await bowel function. NG output is still bile tinged. Will keep NG for now.
[2017-05-31] MEDS: FAMOTIDINE INJ/PF 20 MG/2 ML SDV IV SCH ×2 (09:49→21:01)
[2017-05-31] MEDS: ENOXAPARIN SODIUM INJ 40 MG/0.4 ML DISP.SYRIN SUBCUT SCH (09:49)
[2017-05-31] MEDS: NEBIVOLOL HCL 5 MG TABLET NG SCH (09:50)
[2017-05-31] MEDS: NORMAL SALINE 10 ML SDV (SCHEDULED) IV SCH ×2 (09:50→21:01)
[2017-05-31] MEDS ORDERED: POTASSI CL 20 MEQ/D5-1/2NS 1L 1,000 ML IV ONE ×2 (10:09→21:52)
--- NOTE | 2017-05-31 18:43 | PDOC PROGRESS REPORT ---
Subjective Progress Note for:: 05/31/17 Subjective:: Feels well Physical Exam Vital Signs: Temp Pulse Resp BP Pulse Ox 97.5 F 56 L 16 147/83 H 100 05/31/17 17:00 05/31/17 17:00 05/31/17 17:00 05/31/17 17:00 05/31/17 17:00 Intake & Output 05/30/17 05/31/17 06/01/17 06:59 06:59 06:59 Intake Total 4299 3826 0 Output Total 2075 2890 1400 Balance 2224 936 -1400 Weight 80.5 kg 78 kg General appearance: PRESENT: no acute distress, cooperative GI/Abdominal exam: PRESENT: other - Soft, Nondistended, minimal tenderness Results Laboratory Results: 05/30/17 05:45 05/30/17 05:45 Assessment & Plan - Diagnosis (1) Diverticulitis of sigmoid colon Is this a current diagnosis for this admission?: YesPlan: Status post low anterior resection. Patient looks well.
[2017-05-31] MEDS ORDERED: POTASSI CL 20 MEQ/1/2NS 1L 0 MEQ/0 ML RTUINJ IV ONE (21:49)
[2017-06-01] MEDS ORDERED: POTASSI CL 20 MEQ/D5-1/2NS 1L 1,000 ML IV ONE (08:51)
[2017-06-01] MEDS ORDERED: POTASSI CL 20 MEQ/D5-1/2NS 1L 1000 ML IV PRN (08:51)
[2017-06-01] MEDS: FAMOTIDINE INJ/PF 20 MG/2 ML SDV IV SCH ×2 (10:57→21:05)
[2017-06-01] MEDS: ENOXAPARIN SODIUM INJ 40 MG/0.4 ML DISP.SYRIN SUBCUT SCH (10:57)
[2017-06-01] MEDS: MORPHINE SULFATE 10 MG/ML INJ IV PRN ×2 (10:57→16:15)
[2017-06-01] MEDS: NEBIVOLOL HCL 5 MG TABLET NG SCH (10:57)
[2017-06-01] MEDS: POTASSI CL 20 MEQ/D5-1/2NS 1L 1000 ML IV PRN ×2 (10:58→19:59)
[2017-06-01] MEDS: NORMAL SALINE 10 ML SDV (SCHEDULED) IV SCH ×2 (11:00→21:05)
--- NOTE | 2017-06-01 11:16 | PDOC PROGRESS REPORT ---
Subjective Progress Note for:: 06/01/17 Subjective:: Feels okay. Still has not passed gas however. Physical Exam Vital Signs: Temp Pulse Resp BP Pulse Ox 98.3 F 54 L 17 148/79 H 100 06/01/17 08:08 06/01/17 08:08 06/01/17 08:08 06/01/17 08:08 06/01/17 08:08 Intake & Output 05/31/17 06/01/17 06/02/17 06:59 06:59 06:59 Intake Total 3826 1853 Output Total 2890 3130 Balance 936 -1277 Weight 78 kg 73.9 kg General appearance: PRESENT: no acute distress, cooperative Respiratory exam: PRESENT: clear to auscultation reji Cardiovascular exam: PRESENT: RRR GI/Abdominal exam: PRESENT: other - Soft, minimal tenderness, clean dry and intact, drain output is serosanguineous. Positive bowel sounds. Still having copious amount of NG output however. Results Laboratory Results: 05/30/17 05:45 05/30/17 05:45 Assessment & Plan - Diagnosis (1) Diverticulitis of sigmoid colon Is this a current diagnosis for this admission?: YesPlan: Status post low anterior resection. Patient looks well. Still with NG output and no flatus. Will await bowel function. Otherwise patient looks well.
[2017-06-01] MEDS: POTASSI CL 20 MEQ/50 ML RIDER 20 MEQ/50 ML RTUPB IV SCH ×2 (12:14→14:39)
[2017-06-02 09:04] LABS: ANION GAP 11 (5-19); CARBON DIOXIDE 23 mmol/L (22-30); CHLORIDE 106 mmol/L (98-107); CREATININE RESULT 0.63 mg/dL (0.52-1.25); GLUCOSE 99 mg/dL (75-110); POTASSIUM 3.8 mmol/L (3.6-5.0); SODIUM 140.3 mmol/L (137-145)
[2017-06-02 09:10] LABS: BLOOD UREA NITROGEN < 2 mg/dL (7-20)
[2017-06-02] MEDS: NEBIVOLOL HCL 5 MG TABLET NG SCH (09:18)
[2017-06-02] MEDS: NORMAL SALINE 10 ML SDV (SCHEDULED) IV SCH ×2 (09:18→21:26)
[2017-06-02] MEDS: FAMOTIDINE INJ/PF 20 MG/2 ML SDV IV SCH ×2 (09:18→21:26)
[2017-06-02] MEDS: ENOXAPARIN SODIUM INJ 40 MG/0.4 ML DISP.SYRIN SUBCUT SCH (09:19)
[2017-06-02] MEDS: POTASSI CL 20 MEQ/D5-1/2NS 1L 1000 ML IV PRN (09:19)
--- NOTE | 2017-06-02 15:00 | PDOC PROGRESS REPORT ---
Subjective Progress Note for:: 06/02/17 Subjective:: Feels well. But no passage of gas. Patient had some intermittent palpitations that she has had at home in the past. Currently without symptoms. No shortness of breath no chest pain. Patient has concerns that she is not absorbing her bisystolic since NG tube is on continuous suction. Physical Exam Vital Signs: Temp Pulse Resp BP Pulse Ox 98.1 F 53 L 17 125/85 100 06/02/17 04:46 06/02/17 04:46 06/02/17 04:46 06/02/17 04:46 06/02/17 04:46 Intake & Output 06/01/17 06/02/17 06/03/17 06:59 06:59 06:59 Intake Total 1853 2250 Output Total 3130 2450 Balance -1277 -200 Weight 73.9 kg 72.5 kg General appearance: PRESENT: no acute distress, cooperative Respiratory exam: PRESENT: clear to auscultation reji Cardiovascular exam: PRESENT: RRR GI/Abdominal exam: PRESENT: other - Soft, nondistended, active bowel sounds. Minimal tenderness. Wound clean dry and intact. Drain output is serosanguineous. Extremities exam: PRESENT: other - No swelling Results Laboratory Results: 05/30/17 05:45 05/30/17 05:45 Assessment & Plan - Diagnosis (1) Diverticulitis of sigmoid colon Is this a current diagnosis for this admission?: YesPlan: Status post low anterior resection. Patient looks well. Check Chem-7. We will clamp NG tube if she tolerates that well will DC NG tube later today.
--- NOTE | 2017-06-02 15:03 | PDOC PROGRESS REPORT ---
Subjective Subjective:: Tolerated NG clamping for approximately 6 hours. No nausea no abdominal bloating. NG placed back to suction and minimal output of clear fluid. Therefore it was removed. Physical Exam Vital Signs: Temp Pulse Resp BP Pulse Ox 98.4 F 57 L 16 139/87 H 99 06/02/17 07:22 06/02/17 07:22 06/02/17 07:22 06/02/17 07:22 06/02/17 07:22 Intake & Output 06/01/17 06/02/17 06/03/17 06:59 06:59 06:59 Intake Total 1853 2250 Output Total 3130 2450 Balance -1277 -200 Weight 73.9 kg 72.5 kg Results Laboratory Results: 05/30/17 05:45 06/02/17 07:03 06/02/17 07:03 Sodium 140.3 Potassium 3.8 Chloride 106 Carbon Dioxide 23 Anion Gap 11 BUN < 2 L Creatinine 0.63 Est GFR ( Amer) > 60 Est GFR (Non-Af Amer) > 60 Glucose 99 Calcium 9.0 Assessment & Plan - Diagnosis (1) Diverticulitis of sigmoid colon Is this a current diagnosis for this admission?: YesPlan: Status post low anterior resection. Patient looks well. Potassium slightly low. Will replace. NG DC'd today. If she continues to do well will start a diet tomorrow.
[2017-06-02] MEDS: POTASSI CL 20 MEQ/50 ML RIDER 50 ML IV SCH ×2 (15:52→17:57)
[2017-06-02] MEDS: MORPHINE SULFATE 10 MG/ML INJ IV PRN (21:26)
[2017-06-03] MEDS: NEBIVOLOL HCL 5 MG TABLET NG SCH (11:40)
[2017-06-03] MEDS: ENOXAPARIN SODIUM INJ 40 MG/0.4 ML DISP.SYRIN SUBCUT SCH (11:45)
[2017-06-03] MEDS: NORMAL SALINE 10 ML SDV (SCHEDULED) IV SCH ×2 (11:45→21:53)
[2017-06-03] MEDS: FAMOTIDINE INJ/PF 20 MG/2 ML SDV IV SCH ×2 (11:45→21:53)
[2017-06-03] MEDS: MORPHINE SULFATE 10 MG/ML INJ IV PRN (15:18)
--- NOTE | 2017-06-03 18:05 | PDOC PROGRESS REPORT ---
Subjective Progress Note for:: 06/03/17 Subjective:: Well. Tolerating full liquids well. Had a small bowel movement today. Physical Exam Vital Signs: Temp Pulse Resp BP Pulse Ox 98.1 F 55 L 12 137/90 H 100 06/03/17 12:00 06/03/17 12:00 06/03/17 12:00 06/03/17 12:00 06/03/17 12:00 Intake & Output 06/02/17 06/03/17 06/04/17 06:59 06:59 06:59 Intake Total 2250 613 770 Output Total 2450 1750 1100 Balance -200 -1137 -330 Weight 72.5 kg 74 kg General appearance: PRESENT: no acute distress, cooperative Cardiovascular exam: PRESENT: RRR GI/Abdominal exam: PRESENT: other - Soft, Nondistended, minimal tenderness. Results Laboratory Results: 05/30/17 05:45 06/02/17 07:03 Assessment & Plan - Diagnosis (1) Diverticulitis of sigmoid colon Is this a current diagnosis for this admission?: YesPlan: Status post low anterior resection. Looks well. Tolerating liquid diet well today. Will advance to solid diet in the morning and probably discharge patient home in the morning if she continues to do well.
[2017-06-03] MEDS ORDERED: MAGNESIUM OXIDE PO PRN (18:06)
[2017-06-04 08:43] VITALS: BP 127/88
[2017-06-04] MEDS: NORMAL SALINE 10 ML SDV (SCHEDULED) IV SCH (09:30)
[2017-06-04] MEDS: NEBIVOLOL HCL 5 MG TABLET NG SCH (09:30)
[2017-06-04] MEDS: ENOXAPARIN SODIUM INJ 40 MG/0.4 ML DISP.SYRIN SUBCUT SCH (09:30)
[2017-06-04] MEDS: FAMOTIDINE INJ/PF 20 MG/2 ML SDV IV SCH (09:30)
[2017-06-04] MEDS ORDERED: LANSOPRAZOLE 30 MG TAB.RAP.DR PO SCH (10:00)
[2017-06-04] MEDS ORDERED: MAGNESIUM OXIDE 400 MG TABLET PO PRN (10:00)
--- NOTE | 2017-06-04 10:15 | PDOC PROGRESS REPORT ---
Subjective Progress Note for:: 06/04/17 Subjective:: Feels well. Tolerating solid diet. Passing gas. Physical Exam Vital Signs: Temp Pulse Resp BP Pulse Ox 97.8 F 55 L 13 127/88 H 100 06/04/17 07:24 06/04/17 07:24 06/04/17 07:24 06/04/17 07:24 06/04/17 07:24 Intake & Output 06/03/17 06/04/17 06/05/17 06:59 06:59 06:59 Intake Total 613 1296 Output Total 1750 1550 Balance -1137 -254 Weight 74 kg 74.2 kg General appearance: PRESENT: no acute distress, cooperative Respiratory exam: PRESENT: clear to auscultation reji Cardiovascular exam: PRESENT: RRR GI/Abdominal exam: PRESENT: other - Soft, nondistended, minimal tenderness. Wound clean dry and intact. Extremities exam: PRESENT: other - No swelling. Results Laboratory Results: 05/30/17 05:45 06/02/17 07:03 Assessment & Plan - Diagnosis (1) Diverticulitis of sigmoid colon Is this a current diagnosis for this admission?: YesPlan: Status post low anterior resection. Looks well. Discharge patient home. DC sergei. DC PICC line.
--- NOTE | 2017-06-04 10:41 | DISCHARGE SUMMARY E ---
Discharge Summary NAME: CELENA STANTON : 1965 AGE: 52Y ADMITTED: 05/28/2017 DISCHARGED: 06/04/2017 DISCHARGE DIAGNOSIS: Sigmoid diverticulitis. PROCEDURE PERFORMED DURING HOSPITALIZATION: Sigmoidectomy with colorectal anastomosis performed by Dr. Vance Fowler on May 28, 2017. HOSPITAL COURSE: The patient underwent the above mentioned procedure. She did well postoperatively. She had gradual resumption of bowel function and she was tolerating a solid diet well with bowel movement by the time of discharge. Patient is now being discharged to home in good condition. She will follow up with me next week. Of note her preoperative abdominal pain had resolved after her surgery. She was encouraged to stay active at home but avoid strenuous activity. She may resume all of her home medications except for tylenol and invanz. Additional medications are Percocet 1-2 p.o. q.4 hours p.r.n. pain and Colace 100 mg p.o. b.i.d. DICTATING PHYSICIAN: VANCE FOWLER M.D. [id number] PHY#: [id number] ID: [id number] JOB#: [id number] ACCT: [id number] cc:VANCE FOWLER M.D. > MTDD
== END 2017-06-04 13:06 | disposition home or self-care (01) | DRG 331 ==
LOC: INOR 07:58 → 4N 16:30
PROVIDERS: ADMIT Surgery; ATTEND Surgery
PROC: 0DTN0ZZ Resection of Sigmoid Colon, Open Approach (ICD-10-PCS; principal; 2017-05-28 10:00)
DX: K57.32 Diverticulitis of large intestine without perforation or abscess without bleeding (principal); K21.9 Gastro-esophageal reflux disease without esophagitis; Z79.899 Other long term (current) drug therapy
CPT/HCPCS: 36415; 80048; 840; 84132; 85027; 86850; 86900; 86901; 88307; 93005; 93010; J0131; J0330; J1100; J1335; J1642; J1650; J2250; J2270; J2405; J2704; J3010; J3480; J3490; J7030; J7120; S0028

== ENCOUNTER 2017-09-10 07:12 | Day surgery (SDC) | payer BC ==
[2017-09-10] MEDS ORDERED: ONDANSETRON HCL INJ/PF 4 MG/2 ML SDV ONE (07:45)
[2017-09-10] MEDS ORDERED: GLYCOPYRROLATE INJ 0.4 MG/2 ML VIAL ONE (07:46)
[2017-09-10] MEDS ORDERED: NALOXONE HCL INJ/PF 0.4 MG/1 ML SDV ONE (07:46)
[2017-09-10] MEDS ORDERED: FLUMAZENIL INJ 0.5 MG/5 ML VIAL ONE (07:47)
[2017-09-10] MEDS ORDERED: GLUCAGON,HUMAN RECOMB 1 MG INJ ONE (07:47)
[2017-09-10] MEDS ORDERED: EPINEPHRINE INJ 1 MG/10 ML DISP.SYRIN ONE (07:47)
[2017-09-10 07:57] LABS: HEMATOCRIT 40.1 % (36.0-47.0); HEMOGLOBIN 13.9 g/dL (12.0-15.5); HGB HCT DIFFERENCE 1.6; MEAN CORPUSCULAR HEMOGLOBIN 31.2 pg (27.0-33.4); MEAN CORPUSCULAR HGB CONC 34.6 g/dL (32.0-36.0); MEAN CORPUSCULAR VOLUME 90 fl (80-97); RED BLOOD COUNT 4.44 10^6/uL (3.72-5.28); RED CELL DISTRIBUTION WIDTH 12.8 % (11.5-14.0); WHITE BLOOD COUNT 5.8 10^3/uL (4.0-10.5)
[2017-09-10] MEDS: MIDAZOLAM 2 MG/2 ML INJ ONE ×3 (08:52→09:02)
[2017-09-10] MEDS: FENTANYL CITRATE INJ/PF 100 MCG/2 ML AMPUL ONE ×3 (08:54→09:06)
--- NOTE | 2017-09-10 09:27 | Operative Report ---
Operative Report DATE OF SURGERY: 09/10/17 PREOPERATIVE DIAGNOSIS: History of colon polyps POSTOPERATIVE DIAGNOSIS: History of colon polyps OPERATION: Colonoscopy SURGEON: MYRTLE FOWLER ANESTHESIA: Moderate Sedation COMPLICATIONS: None ESTIMATED BLOOD LOSS: None INTRAOPERATIVE FINDINGS: Scattered diverticuli throughout the colon. Well- healed colorectal anastomosis. PROCEDURE: Informed consent was obtained. Patient was brought to the endoscopy suite. IV sedation with Versed and fentanyl was administered. Digital rectal exam revealed no palpable perianal masses. Endoscope was passed via the patient's anus it was fed to the cecum. Bowel prep was good and visualization was good. Cecum, right colon, transverse colon, descending colon and the rectum were all unremarkable other than scattered diverticuli in the transverse and descending colon. Patient had a well-healed colorectal anastomosis. Air in the colon was desufflated. Patient tolerated procedure well with no apparent complications and was taken to the recovery area in stable condition. With her history of colon polyps in the past recommend repeat colonoscopy in 5 years. Sooner if she has any concerning signs or symptoms.
--- NOTE | 2017-09-10 09:29 | PDOC DISCHARGE SUMMARY ---
Discharge Summary (SDC) - Discharge Final Diagnosis: Diverticulosis of the colon. History of colon polyps. Date of Surgery: 09/10/17 Discharge Date: 09/10/17 Condition: Good Treatment or Instructions: Underwent colonoscopy. February discharge patient home when met discharge criteria. Follow-up with me in 2 weeks. Referrals: LAURA TRAN MD [Primary Care Provider] - Discharge Diet: As Tolerated Discharge Activity: Activity As Tolerated Report the Following to Your Physician Immediately: Increase in Pain, Fever over 101 Degrees, Unusual Bleeding
[2017-09-10 10:20] VITALS: BP 122/79
== END 2017-09-10 10:20 | disposition home or self-care (01) ==
LOC: END 07:12
PROVIDERS: ATTEND Surgery
DX: K57.30 Diverticulosis of large intestine without perforation or abscess without bleeding (principal); Z12.11 Encounter for screening for malignant neoplasm of colon; Z86.010 Personal history of colon polyps; I49.9 Cardiac arrhythmia, unspecified; K21.9 Gastro-esophageal reflux disease without esophagitis; Z79.899 Other long term (current) drug therapy
CPT/HCPCS: 45378; 36415; 85027; J2250; J3010; J0171; J1610; J2310; J2405; J3490

== ENCOUNTER → 2017-11-01 | Outpatient (CLI) | payer BC ==
--- NOTE | 2017-11-01 17:05 | RADIOLOGY REPORT (SQ) ---
EXAM DESCRIPTION: MRI HEAD COMBO COMPLETED DATE/TIME: 11/01/2017 4:52 pm REASON FOR STUDY: G45.3 AMAUROSIS FUGAX G45.3 AMAUROSIS FUGAX COMPARISON: None. TECHNIQUE: Multiplanar imaging includes non-contrasted T1, T2, FLAIR, diffusion with ADC map and pos t gadolinium contrast sequences. Additional thin slice images with and without gadolinium contrast a cquired of the orbits. Images stored on PACS. CONTRAST TYPE AND DOSE: 20 mL Multihance. RENAL FUNCTION: GFR > 60. LIMITATIONS: None. FINDINGS: ANATOMY: No anomalies. Normal vascular flow voids. Pituitary fossa normal. CSF SPACES: Normal in size and contour. CEREBRUM: Sulci and gyri normal in size and contour. Normal white matter signal on FLAIR imaging. N o hemorrhage. No edema, masses or mass effect. No enhancing lesions. Incidental venous angioma benji g the inferior margin of the right frontal lobe. POSTERIOR FOSSA: No signal alteration. No hemorrhage. No edema, masses or mass effect. Internal reina tory canals, cerebello-pontine angles, mastoids normal. No enhancing lesions. DIFFUSION IMAGING: Negative for acute or sub-acute infarction. ORBITS: No masses. Globes normal. Extraocular muscles and optic nerves normal. Orbital fat clear. No inflammatory changes or enhancement. PARANASAL SINUSES: No fluid levels. Mucosa normal. OTHER: No other significant finding. IMPRESSION: INCIDENTAL VENOUS ANGIOMA ALONG THE INFERIOR MARGIN OF THE RIGHT FRONTAL LOBE. OTHERWIS E UNREMARKABLE MRI OF THE BRAIN AND ORBITS WITHOUT AND WITH INTRAVENOUS GADOLINIUM CONTRAST. TECHNICAL DOCUMENTATION: JOB ID: [id number] [employer]- All Rights Reserved
--- NOTE | 2017-11-01 17:08 | RADIOLOGY REPORT (SQ) ---
EXAM DESCRIPTION: MRA HEAD WITHOUT COMPLETED DATE/TIME: 11/01/2017 4:52 pm REASON FOR STUDY: G45.3 AMAUROSIS FUGAX G45.3 AMAUROSIS FUGAX COMPARISON: None. TECHNIQUE: Axial 3-D etfl-by-bxowcm acquisition imaging performed through the brain in the area of t he [place]. Images reformatted using 3-D MIPS. LIMITATIONS: None. FINDINGS: SOURCE IMAGES: No unexpected findings on source images. No large masses. 3-D MIP: No aneurysm. No occlusions. No significant stenosis. OTHER: No other significant finding. IMPRESSION: NORMAL MRA OF THE [place]. TECHNICAL DOCUMENTATION: JOB ID: [id number] [employer]- All Rights Reserved
--- NOTE | 2017-11-01 17:11 | RADIOLOGY REPORT (SQ) ---
EXAM DESCRIPTION: MRA NECK COMBO COMPLETED DATE/TIME: 11/01/2017 4:52 pm REASON FOR STUDY: G45.3 AMAUROSIS FUGAX G45.3 AMAUROSIS FUGAX COMPARISON: None. TECHNIQUE: MRA of the carotid and vertebral arteries was performed using 2D and 3D hbza-ap-hezgcx te chniques without and with the use of gadolinium. 3-D MIPs performed at the workstation and stored on PACS. CONTRAST TYPE AND DOSE: 20 mL Multihance. RENAL FUNCTION: GFR > 60. LIMITATIONS: None. FINDINGS: GREAT VESSEL ORIGINS: Normal. No stenoses. VERTEBRAL ARTERIES: No stenoses. No evidence for aneurysm or dissection. RIGHT CAROTID SYSTEM: No significant stenosis. LEFT CAROTID SYSTEM: No significant stenosis. OTHER: No other significant finding. IMPRESSION: NORMAL MRA OF THE CAROTIDS WITH AND WITHOUT CONTRAST. COMMENT: Quality ID #[id number]: Measurements of distal internal carotid diameter were used as the denomina tor for stenosis measurement. TECHNICAL DOCUMENTATION: JOB ID: [id number] [employer]- All Rights Reserved
== END ==
LOC: RAD 13:28
PROVIDERS: ATTEND Internal Medicine
DX: G45.3 Amaurosis fugax (principal)
CPT/HCPCS: 82565; 70553; 70544; 70549; A9577

== ENCOUNTER → 2018-04-05 | Outpatient (CLI) | payer BC ==
[2018-04-05 11:38] LABS: ABSOLUTE EOSINOPHILS # (AUTO) 0.1 10^3/uL (0.0-0.6); ABSOLUTE LYMPHOCYTES (AUTO) 2.1 10^3/uL (0.5-4.7); ABSOLUTE MONOCYTES (AUTO) 0.4 10^3/uL (0.1-1.4); ABSOLUTE NEUT (AUTO) 3.1 10^3/uL (1.7-8.2); BASOPHILS % (AUTO) 0.7 % (0-2); EOSINOPHILS % (AUTO) 1.4 % (0-6); HEMATOCRIT 39.6 % (36.0-47.0); HEMOGLOBIN 13.5 g/dL (12.0-15.5); LYMPHOCYTES % (AUTO) 36.7 % (13-45); MEAN CORPUSCULAR HEMOGLOBIN 31.6 pg (27.0-33.4); MEAN CORPUSCULAR HGB CONC 34.1 g/dL (32.0-36.0); MEAN CORPUSCULAR VOLUME 93 fl (80-97); MONOCYTES % (AUTO) 6.5 % (3-13); PLATELET COUNT 221 10^3/uL (150-450); RED BLOOD COUNT 4.26 10^6/uL (3.72-5.28); RED CELL DISTRIBUTION WIDTH 12.5 % (11.5-14.0); SEGMENTED NEUTROPHILS % (AUTO) 54.7 % (42-78); TOTAL CELLS COUNTED % (AUTO) 100 %; WHITE BLOOD COUNT 5.6 10^3/uL (4.0-10.5)
[2018-04-05 11:49] LABS: APPEARANCE,URINE CLEAR; BILIRUBIN,URINE NEGATIVE (NEGATIVE); COLOR,URINE STRAW; GLUCOSE, URINE NEGATIVE (NEGATIVE); KETONES,URINE NEGATIVE (NEGATIVE); LEUKOCYTE ESTERASE,URINE NEGATIVE (NEGATIVE); NITRITE,URINE NEGATIVE (NEGATIVE); PROTEIN,URINE NEGATIVE (NEGATIVE); URINE SPECIFIC GRAVITY 1.008; UROBILINOGEN,URINE NEGATIVE mg/dL (<2.0)
[2018-04-05 11:59] LABS: ALANINE AMINOTRANSFERASE 22 U/L (9-52); ALBUMIN 4.1 g/dL (3.5-5.0); ALKALINE PHOSPHATASE 48 U/L (38-126); ANION GAP 9 (5-19); ASPARTATE AMINO TRANSFERASE 27 U/L (14-36); BILIRUBIN,DIRECT 0.3 mg/dL (0.0-0.4); BLOOD UREA NITROGEN 15 mg/dL (7-20); CALCIUM 9.1 mg/dL (8.4-10.2); CARBON DIOXIDE 27 mmol/L (22-30); CHLORIDE 107 mmol/L (98-107); CHOLESTEROL 176.88 mg/dL (0-200); GLUCOSE 78 mg/dL (75-110); POTASSIUM 4.6 mmol/L (3.6-5.0); SODIUM 142.9 mmol/L (137-145); TOTAL PROTEIN 7.1 g/dL (6.3-8.2); TRIGLYCERIDES 118 mg/dL (<150)
[2018-04-05 12:10] LABS: DIRECT LDL 83 mg/dL (<100)
[2018-04-05 12:16] LABS: FREE T4 (FREE THYROXINE) 0.98 ng/dL (0.78-2.19)
[2018-04-05 12:30] LABS: THYROID STIMULATING HORMONE 1.94 uIU/mL (0.47-4.68)
[2018-04-07 03:36] LABS: CREATININE URINE 49.3 mg/dL (Not Estab.)
[2018-04-07 07:39] LABS: MICROALBUMIN URINE <3.0 ug/mL (Not Estab.)
== END ==
LOC: OD 10:08
PROVIDERS: ATTEND Internal Medicine
DX: I10 Essential (primary) hypertension (principal)
CPT/HCPCS: 36415; 80053; 80061; 81001; 82043; 82306; 82570; 84439; 84443; 84550; 85025

== ENCOUNTER → 2020-03-08 | Outpatient (CLI) | payer BC ==
--- NOTE | 2020-03-08 11:58 | RADIOLOGY REPORT (SQ) ---
EXAM DESCRIPTION: NM GASTRIC EMPTYING STUDY IMAGES COMPLETED DATE/TIME: 03/08/2020 11:46 am REASON FOR STUDY: (K21.9)GASTRO-ESOPHAGEAL REFLUX DISEASE WITHOUT ESOPHAGITIS;(R11.11)VOMITIN K21.9 GASTRO-ESOPHAGEAL REFLUX DISEASE WITHOUT ESOPHAGITIS R11.11 VOMITING WITHOUT NAUSEA COMPARISON: None. RADIONUCLIDE AND DOSE: 2.17 millicuries Tc-99m Sulfur Colloid. Egg salad sandwich The route of agent administration: Oral. TECHNIQUE: 1 minute serial static imaging performed at time of meal, 1 hour, 2 hours, 3 hours, and 4 hours as needed. Once stomach reaches 90% emptying, the test is complete. Image intensity values pl otted with respect to time with linear regression algorithm. LIMITATIONS: None. FINDINGS: Patient was observed for 4 hours. Immediate post meal serves as baseline. Gastric emptying at 60 minutes was 17%. Gastric emptying at 120 minutes was 68% Gastric emptying at 180 minutes was 81%. Gastric emptying at 240 minutes was 86%. Normal values: 60 minutes: 30-90% retained. If less than 30%, abnormally rapid emptying. If greater than 90%, delaye d gastric emptying. 120 minutes: <60% retained. If greater than 60%, delayed gastric emptying. 240 minutes: <10% retained. If greater than 10%, delayed gastric emptying. IMPRESSION: Delayed gastric emptying. TECHNICAL DOCUMENTATION: JOB ID: [id number] [employer]- All Rights Reserved rev-03/07 Reading location - IP/workstation name: [email or web address]
== END ==
LOC: RAD 07:02
PROVIDERS: ATTEND Internal Medicine Gastroenterology
DX: K21.9 Gastro-esophageal reflux disease without esophagitis (principal); R11.11 Vomiting without nausea
CPT/HCPCS: 78264; A9541